=== PATIENT | female | born 1945 | race Caucasian/White ===

== ENCOUNTER 2016-06-16 10:12 | Emergency (ER) | payer BC ==
[~2016-06-16] VITALS: Ht 167.6 cm; Wt 141.8 kg
[~2016-06-16 10:12] MED LIST: DIAZ-165 PO; DICL-201 PO; DIPH25CA65 PO; FLUT0.15; LEVO150T PO; PANT40TA PO; SPIR50TA2 PO; ZNTT/150 PO
[2016-06-16 10:14] VITALS: TEMP 36.8; Ht 167.6 cm; Wt 141.8 kg
--- NOTE | 2016-06-16 10:38 | EMERGENCY ROOM VISIT NOTE ---
History Report prepared by Auraibe: Kelley Alexander Under the Supervision of: Dr. Jose Wolfe M.D. First contact with patient: 10:28 Chief Complaint: FLANK PAIN Stated Complaint: SIDE PAINS History of Present Illness The patient is a 71 year old female who presents to the Emergency Room with complaints of persistent right sided flank pain for the past 2 days. She is accompanied by her . She rates her pain as an 8.5/10. Palpation worsens her discomfort. She denies any urinary symptoms or history of kidney stones. She saw her PCP, Dr. Lambert, earlier this morning and reports he sent her to the ED for further evaluation. She notes she started Meloxicam 2 days ago, for a history of back pain, and states it seems to have caused constipation. She did have a "a few small bowel movements" yesterday, but reports she still feels blocked up. She denies any fevers, chills, chest pain, shortness of breath or recent trauma or injuries. The patient denies any history of hypertension, diabetes or cardiac history. She still has her appendix and gallbladder. She is leaving on a cruise this coming week and is concerned about her symptoms affecting her travel. 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 A total of 10 systems reviewed and were otherwise negative. Past Medical & Surgical Medical Problems: (1) History of back pain Old medical records were reviewed. Nurse's notes were reviewed and I agree with. Social History Smoking Status: Never Smoker Alcohol Use: occasionally Drug Use: none Marital Status: Housing Status: lives with family Occupation Status: retired Current/Historical Medications Scheduled Diazepam (Valium), 5 MG PO DAILY Fluticasone Propionate (Nasal) (Flonase Allergy Relief), 1 SPRAY NA DAILY Levothyroxine Sodium (Synthroid), 1 TAB PO DAILY Methylprednisolone (Medrol Dosepak), 0 PO DAILY Pantoprazole (Protonix), 40 MG PO DAILY Ranitidine (Zantac), 1 TAB PO BID Spironolactone (Aldactone), 50 MG PO BID Scheduled PRN Diphenhydramine Hcl (Benadryl Allergy), 1 CAP PO DAILY-BID PRN for PRN Allergies Coded Allergies: Celecoxib (Unverified Allergy, Unknown, swelling, 06/16/16) Sulfa Antibiotics (Unverified Allergy, Unknown, UNKNOWN, 06/16/16) Uncoded Allergies: seafood (Allergy, Unknown, itching, numbness in lips, 01/30/16) Physical Exam Vital Signs Date Time Temp Pulse Resp B/P Pulse Ox O2 Delivery O2 Flow Rate FiO2 06/16/16 13:36 88 20 164/102 97 Room Air 06/16/16 12:02 88 20 148/83 06/16/16 10:53 92 20 166/89 96 06/16/16 10:14 36.8 93 20 140/86 97 Room Air Physical Exam General: Non-ill appearing older female, well developed, well nourished, in no acute distress, breathing comfortably on room air. Normal speech HEENT: Normal cephalic atraumatic. Pupils are equal round and reactive to light. Extraocular movements are intact. Oropharynx is pink with moist mucous membranes. No swelling of the mouth lips or tongue. Neck: Supple with a midline trachea. No meningeal signs or stiffness, no JVD or bruits. No Stridor. Chest: Clear to auscultation bilaterally. No wheezes or rhonchi. No increased work of breathing. Heart: regular rate and rhythm. Abdomen: Soft, minimal tenderness in right abdomen, nondistended without rebound , guarding or rigidity. Extremities: No cyanosis clubbing or edema. No calf tenderness or assymetry Spine/Back. Non tender to palpation. No CVA tenderness Skin: Good turgor without rashes. Neurologic exam: Cranial nerves two through 12 are intact. Motor and sensation are intact and symmetrical throughout. Medical Decision & Procedures ER Provider Diagnostic Interpretation: This CT scan was reviewed and interpreted by the radiologist and reviewed by myself. ABDOMEN AND PELVIS CT WITHOUT CONTRAST IMPRESSION: No renal stones or hydronephrosis. Negative study abdomen and pelvis Electronically signed by: Vernon Molina M.D. 06/16/2016 11:16 AM Laboratory Results 06/16/16 10:35 Red Blood Count 5.02, Mean Corpuscular Volume 90.0, Mean Corpuscular Hemoglobin 30.7, Mean Corpuscular Hemoglobin Concent 34.1, Mean Platelet Volume 9.5, Neutrophils (%) (Auto) 59.5, Lymphocytes (%) (Auto) 29.2, Monocytes (%) (Auto) 9.5, Eosinophils (%) (Auto) 1.2, Basophils (%) (Auto) 0.3, Neutrophils # (Auto) 4.00, Lymphocytes # (Auto) 1.96, Monocytes # (Auto) 0.64, Eosinophils # (Auto) 0.08, Basophils # (Auto) 0.02 06/16/16 10:35 Test 06/16/16 10:35 White Blood Count 6.72 K/uL (4.8-10.8) Red Blood Count 5.02 M/uL (4.2-5.4) Hemoglobin 15.4 g/dL (12.0-16.0) Hematocrit 45.2 % (37-47) Mean Corpuscular Volume 90.0 fL (80-100) Mean Corpuscular Hemoglobin 30.7 pg (25-34) Mean Corpuscular Hemoglobin Concent 34.1 g/dl (32-36) Platelet Count 286 K/uL (130-400) Mean Platelet Volume 9.5 fL (7.4-10.4) Neutrophils (%) (Auto) 59.5 % Lymphocytes (%) (Auto) 29.2 % Monocytes (%) (Auto) 9.5 % Eosinophils (%) (Auto) 1.2 % Basophils (%) (Auto) 0.3 % Neutrophils # (Auto) 4.00 K/uL (1.4-6.5) Lymphocytes # (Auto) 1.96 K/uL (1.2-3.4) Monocytes # (Auto) 0.64 K/uL (0.11-0.59) Eosinophils # (Auto) 0.08 K/uL (0-0.5) Basophils # (Auto) 0.02 K/uL (0-0.2) RDW Standard Deviation 42.5 fL (36.4-46.3) RDW Coefficient of Variation 13.0 % (11.5-14.5) Immature Granulocyte % (Auto) 0.3 % Immature Granulocyte # (Auto) 0.02 K/uL (0.00-0.02) Urine Color YELLOW Urine Appearance CLEAR (CLEAR) Urine pH 5.0 (4.5-7.5) Urine Specific [place] 1.019 (1.000-1.030) Urine Protein NEG (NEG) Urine Glucose (UA) NEG (NEG) Urine Ketones NEG (NEG) Urine Occult Blood NEG (NEG) Urine Nitrite POS (NEG) Urine Bilirubin NEG (NEG) Urine Urobilinogen NEG (NEG) Urine Leukocyte Esterase NEG (NEG) Urine WBC (Auto) 1-5 /hpf (0-5) Urine RBC (Auto) 0-4 /hpf (0-4) Urine Hyaline Casts (Auto) 1-5 /lpf (0-5) Urine Epithelial Cells (Auto) >30 /lpf (0-5) Urine Bacteria (Auto) 2+ (NEG) Anion Gap 11.0 mmol/L (3-11) Est Creatinine Clear Calc Drug Dose 81.1 ml/min Estimated GFR () 71.2 Estimated GFR (Non- 61.5 BUN/Creatinine Ratio 12.8 (10-20) Calcium Level 9.1 mg/dl (8.5-10.1) Total Bilirubin 0.9 mg/dl (0.2-1) Direct Bilirubin 0.2 mg/dl (0-0.2) Aspartate Amino Transf (AST/SGOT) 21 U/L (15-37) Alanine Aminotransferase (ALT/SGPT) 41 U/L (12-78) Alkaline Phosphatase 103 U/L (45-117) Total Protein 7.9 gm/dl (6.4-8.2) Albumin 4.2 gm/dl (3.4-5.0) Lipase 161 U/L (73-393) Laboratory studies as stated above per my review. Medications Administered Medications (Trade) Dose Ordered Sig/Karlee Route Start Time Stop Time Status Last Admin Dose Admin Sodium Chloride 250 ml @ 999 mls/hr Q16M STAT IV 06/16/16 10:39 06/16/16 10:54 DC 06/16/16 10:46 999 MLS/HR Sodium Chloride (Nss 1000ml) 1,000 ml @ 100 mls/hr Q10H STAT IV 06/16/16 10:39 06/16/16 14:06 DC 06/16/16 10:47 100 MLS/HR Ketorolac Tromethamine (Toradol Inj) 30 mg NOW STAT IV 06/16/16 12:10 06/16/16 12:12 DC 06/16/16 12:18 30 MG Prednisone (PredniSONE TAB) 60 mg NOW STAT PO 06/16/16 13:31 06/16/16 13:32 DC 06/16/16 13:41 60 MG ED Course 1030: Past medical records reviewed. The patient was evaluated in room C4, and a complete history and physical examination were performed. 1039: NSS 1000 ml @ @ 100 mls/hr IV, NSS 250 ml @ 999 mls/hr IV. 1205: I reevaluated the patient. She is still in a lot of pain. 1210: Toradol 30 mg IV. 1320: I reevaluated the patient. She is feeling much better. I discussed her results and discharge instructions and she verbalized complete understanding and agreement. 1331: Prednisone 60 mg PO. Medical Decision Differential Diagnoses: Kidney stone, appendicitis, musculoskeletal pain, AAA, UTI, electrolyte or metabolic abnormality. This patient comes in with back pain for couple days. She does have a history of back pain and is on an NSAID for this. She was placed in room C4. The pain is reproducible. She has nothing to suggest infection or cauda equina syndrome. Multiple blood testing was obtained as well as a CAT scan and urine. She has nothing to suggest a UTI or kidney stone or acute intra-abdominal process. She has no kidney failure or electrolyte or metabolic abnormalities. She was given IV Toradol and steroids. She will continue steroids anti- inflammatories and return if: increasing pain, numbness weakness, worsening of symptoms, change in bowel or bladder function, any new problems or concerns. She is happy with the plan and was discharged home. Impression Primary Impression: Right flank pain Scribe Attestation The scribe's documentation has been prepared under my direction and personally reviewed by me in its entirety. I confirm that the note above accurately reflects all work, treatment, procedures, and medical decision making performed by me. Departure Information Dispostion Home / Self-Care Prescriptions Methylprednisolone (MEDROL DOSEPAK) 4 Mg Bart 0 PO DAILY, #1 PKT Prov: Jose Wolfe M.D. 06/16/16 Referrals Ian Seanz D.O. (PCP) Patient Instructions My [facility] Additional Instructions Rest. Drink plenty of fluids. Be careful getting up and down. Use Medrol Dosepak as directed -steroid Continue to use your Mobic as directed for pain Return if: Increasing pain, fever or chills, worsening of symptoms, any new problems or concerns. Follow-up with your doctor in 1-2 days if not getting better
[2016-06-16] MEDS ORDERED: SODIUM CHLORIDE 0.9% 1000ML 1,000 ML IV STA (10:39)
[2016-06-16] MEDS ORDERED: SODIUM CHLORIDE 0.9% 1000ML 250 ML IV STA (10:39)
[2016-06-16 10:51] LABS: BASO % 0.3 %; BASO ABS # 0.02 K/uL (0-0.2); COMPLETE YES; EOS % 1.2 %; HEMATOCRIT 45.2 % (37-47); IG% 0.3 %; LYMPH % 29.2 %; LYMPH ABS # 1.96 K/uL (1.2-3.4); MEAN CORPUSCULAR HEMOGLOBIN 30.7 pg (25-34); MEAN CORPUSCULAR HGB CONC 34.1 g/dl (32-36); MEAN PLATELET VOLUME 9.5 fL (7.4-10.4); MONO % 9.5 %; NEUT % 59.5 %; PLATELET COUNT 286 K/uL (130-400); RED BLOOD COUNT 5.02 M/uL (4.2-5.4); WHITE BLOOD COUNT 6.72 K/uL (4.8-10.8)
[2016-06-16 11:06] LABS: URINE APPEARANCE CLEAR (CLEAR); URINE BILIRUBIN NEG (NEG); URINE COLOR YELLOW; URINE EPITHELIAL CELL AUTO >30 /lpf (0-5); URINE NITRITE POS (NEG); URINE SPECIFIC GRAVITY 1.019 (1.000-1.030); UROBILINOGEN NEG (NEG)
[2016-06-16 11:07] LABS: MANUAL MICROSCOPIC REQUIRED? NO; REVIEW REQ? NO
--- NOTE | 2016-06-16 11:18 | DIAGNOSTIC IMAGING REPORT ---
ABDOMEN AND PELVIS CT WITHOUT CONTRAST CT DOSE: 1894.93 mGy.cm HISTORY: Right flank pain eval for stone, appy, AAA TECHNIQUE: Multiaxial CT images of the abdomen and pelvis were performed without the use of intravenous and oral contrast according to the standard department stone protocol. COMPARISON STUDY: None. FINDINGS: The lung bases are clear. The unenhanced liver, gallbladder, spleen, pancreas, and adrenal glands are unremarkable. No renal stones or hydronephrosis. No bowel wall thickening or obstruction. The pelvic organs are unremarkable. No suspicious lytic or blastic osseous lesions. Negative appendix. Nonobstructive bowel pattern. IMPRESSION: No renal stones or hydronephrosis. Negative study abdomen and pelvis Electronically signed by: Vernon Molina M.D. 06/16/2016 11:16 AM Dictated Date/Time: 06/16/2016 11:12 AM
[2016-06-16] MEDS ORDERED: KETOROLAC TROMETHAMINE 30 MG/ML VIAL IV STA (12:10)
[2016-06-16 12:45] LABS: BUN/CREATININE RATIO 12.8 (10-20); CALCIUM 9.1 mg/dl (8.5-10.1); CREATININE 0.94 mg/dl (0.60-1.20)
[2016-06-16] MEDS ORDERED: METH4PAK PO (13:33)
[2016-06-16 13:36] VITALS: BP 164/102; PULSE 88; O2SAT 97
== END 2016-06-16 13:49 | disposition home or self-care (01) ==
LOC: C.EDB 10:13 → C.EDC 13:49
DX: R10.9 Unspecified abdominal pain (principal); Z79.899 Other long term (current) drug therapy

== ENCOUNTER → 2016-09-24 | Outpatient (CLI) | payer BC ==
[~2016-09-24] MED LIST changes: -DICL-201 PO
[2016-09-29 02:56] LABS: ANTI-CENTROMERE AB <1.0 NEG AI (<1.0 NEG); ANTI-SS-A <1.0 NEG AI (<1.0 NEG); ANTI-SS-B <1.0 NEG AI (<1.0 NEG); DNA ds CRITHIDIA NEGATIVE (NEGATIVE); Sm Antibody <1.0 NEG AI (<1.0 NEG)
== END | disposition home or self-care (01) ==
LOC: C.LAB1850 12:44
PROVIDERS: ATTEND Internal Medicine Rheumatology
DX: R89.4 Abnormal immunological findings in specimens from other organs, systems and tissues (principal); M06.4 Inflammatory polyarthropathy

== ENCOUNTER → 2017-01-18 | Outpatient (CLI) | payer BC | END | disposition home or self-care (01) | LOC: C.LAB1850 07:26 | PROVIDERS: ATTEND Internal Medicine Endocrinology, Diabetes & Metabolism | DX: E27.0 Other adrenocortical overactivity (principal) ==

== ENCOUNTER → 2017-02-04 | Outpatient (CLI) | payer BC ==
[2017-02-04 12:52] LABS: BASO % 0.5 %; BASO ABS # 0.02 K/uL (0-0.2); COMPLETE YES; EOS % 2.5 %; HEMATOCRIT 44.2 % (37-47); IG% 0.3 %; LYMPH % 40.1 %; LYMPH ABS # 1.59 K/uL (1.2-3.4); MEAN CELL VOLUME 90.6 fL (80-100); MEAN CORPUSCULAR HEMOGLOBIN 30.7 pg (25-34); MEAN CORPUSCULAR HGB CONC 33.9 g/dl (32-36); MEAN PLATELET VOLUME 9.8 fL (7.4-10.4); MONO % 7.3 %; NEUT % 49.3 %; PLATELET COUNT 222 K/uL (130-400); RED BLOOD COUNT 4.88 M/uL (4.2-5.4); WHITE BLOOD COUNT 3.97 K/uL (4.8-10.8)
[2017-02-04 13:30] LABS: ALT/SGPT 28 U/L (12-78); AST/SGOT 13 U/L (15-37); CREATININE 0.73 mg/dl (0.60-1.20)
[2017-02-04 13:32] LABS: ALKALINE PHOSPHATASE 85 U/L (45-117)
== END | disposition home or self-care (01) ==
LOC: C.LAB1850 11:45
PROVIDERS: ATTEND Internal Medicine Rheumatology
DX: M06.4 Inflammatory polyarthropathy (principal); Z79.899 Other long term (current) drug therapy; R19.7 Diarrhea, unspecified

== ENCOUNTER → 2017-09-04 | Outpatient (CLI) | payer BC ==
[~2017-09-04] MED LIST changes: +RANI150T85 PO; -ZNTT/150 PO
[2017-09-04 12:22] LABS: BASO % 0.5 %; BASO ABS # 0.02 K/uL (0-0.2); EOS % 1.6 %; EOS ABS # 0.07 K/uL (0-0.5); HEMATOCRIT 43.9 % (37-47); HEMOGLOBIN 14.3 g/dL (12.0-16.0); IG# 0.01 K/uL (0.00-0.02); LYMPH % 31.1 %; LYMPH ABS # 1.32 K/uL (1.2-3.4); MEAN CELL VOLUME 92.4 fL (80-100); MEAN CORPUSCULAR HEMOGLOBIN 30.1 pg (25-34); MEAN CORPUSCULAR HGB CONC 32.6 g/dl (32-36); MEAN PLATELET VOLUME 9.7 fL (7.4-10.4); MONO % 8.9 %; MONO ABS # 0.38 K/uL (0.11-0.59); NEUT % 57.7 %; NEUT ABS # 2.45 K/uL (1.4-6.5); PLATELET COUNT 247 K/uL (130-400); RED CELL DISTRIBUTION WIDTH CV 13.7 % (11.5-14.5); RED CELL DISTRIBUTION WIDTH SD 46.4 fL (36.4-46.3); WHITE BLOOD COUNT 4.25 K/uL (4.8-10.8)
[2017-09-04 12:35] LABS: ALBUMIN 3.9 gm/dl (3.4-5.0); ALT/SGPT 35 U/L (12-78); AST/SGOT 16 U/L (15-37); CREATININE 0.87 mg/dl (0.60-1.20)
[2017-09-04 12:37] LABS: ALKALINE PHOSPHATASE 109 U/L (45-117); TOTAL PROTEIN 7.9 gm/dl (6.4-8.2)
== END | disposition home or self-care (01) ==
LOC: C.LAB1850 10:29
PROVIDERS: ATTEND Internal Medicine Rheumatology
DX: M06.4 Inflammatory polyarthropathy (principal); Z79.899 Other long term (current) drug therapy

== ENCOUNTER 2024-09-01 11:03 | Inpatient (IN) ==
--- NOTE | 2024-09-01 11:22 | Emergency Department Note ---
Impression & Plan Nausea vomiting and diarrhea, Hypokalemia, Generalized weakness, Hypomagnesemia ED Provider Note NAME: CHEMA VIEIRA AGE: 79 SEX: F : 1945 ARRIVES VIA: Ambulance INFORMANT: Patient, ED PROVIDER(S): Davide Simms MD CHIEF COMPLAINT: "I just do not feel good." MEDICAL DECISION MAKING: Patient presents due to concern for feeling generally unwell. Patient states she has had about 2 weeks of symptoms with some associated body aches. The patient has had vomiting and diarrhea. IV was established and blood work is obtained. Patient's blood work shows a white count of 11.7 with a normal hemoglobin. Thrombocytosis 516. Kidney function is unremarkable. Hypokalemia and hypomagnesemia noted. The patient was ordered replacement. Patient started additional IV fluids. BioFire negative. Chest x-ray without obvious pneumonia. I did have the patient attempted to be walked the patient was unable to do so. Given the patient's inability to ambulate on her own do believe the patient would benefit from inpatient treatment this time. I did speak with Dr. Michelle and the patient was admitted to the medicine service. Discussion w/ other healthcare providers: Dr. Reyes inpatient medicine service Prior /Outside records reviewed: None Differential diagnosis: Infection, dehydration, metabolic abnormality, hypo/hyperglycemia, electrolyte imbalance, anemia, UTI, pneumonia, thyroid dysfunction among others were considered. Diagnostics, as interpreted by me: ECG: Normal sinus rhythm, rate 99, prolonged QTc, left axis deviation no obvious ST elevations. Possible ST depressions in the lateral leads. Cardiac monitoring: An order was placed for continuous cardiac monitoring. The monitor shows a rate of 95 with sinus rhythm. Patient was placed on pulse oximetry Medical decision rules: None Imaging studies: I informally interpreted the patient's chest x-ray without obvious pneumonia or pneumothorax with formal report to follow. HPI: Patient presents due to concern for feeling generally unwell. The patient states that about 2 weeks ago the patient did have some associated neck stiffness and bodyaches. The patient was seen by her PCP Dr. Farah had some blood work completed along with a chest x-ray which she reports was fairly unremarkable was started on Augmentin treatment. The patient states that she has been had poor appetite the last 7 to 10 days poor p.o. intake not eating or drinking very much and has been having dry heaves with occasional intermittent vomiting. Patient denies any chest pains or shortness of breath no abdominal pain. Patient reports that she has a diarrhea. No known sick contacts or any recent travel. Patient has not taken anything in particular other than the Augmentin at home for her symptoms. PAST MEDICAL HISTORY: See Below PAST SURGICAL HISTORY: See Below SOCIAL HISTORY: See Below HOME MEDICATIONS: See Below ALLERGIES: See Below VITALS: See Below PHYSICAL EXAMINATION: GENERAL: NAD, non-toxic. Wearing glasses. EYE EXAM: Normal conjunctiva. PERRL, no anisocoria and EOM's grossly intact w/o pain. OROPHARYNX: Dry mucus membranes, grossly normal dentition. NECK: Trachea midline, no stridor. Supple, no nuchal rigidity, no adenopathy, non-tender. No signs of meningismus. FROM of the neck with good chin to chest and neck extension. LUNGS: Clear to auscultation. Normal chest wall mechanics. HEART: NSR, no MRG. ABDOMEN: Abdomen soft, non-tender, no masses, no rebound or guarding. BACK: No CVA TTP. SKIN: No rashes and no bruising. UPPER EXTREMITIES: Upper extremities are grossly normal. LOWER EXTREMITIES: Grossly normal, no edema. Stool noted on the bilateral lower extremities. NEURO EXAM: A&O x3, cranial nerves II-XII grossly intact, normal speech, moves all 4 extremities. Past Med/Surg History Problem List (Updated 09/01/24 @ 18:06 by Davide Simms MD) Hypomagnesemia (Acute) Generalized weakness (Acute) Hypokalemia (Acute) Nausea vomiting and diarrhea (Acute) Hypokalemia Nausea vomiting and diarrhea Morbid obesity with BMI of 40.0-44.9, adult Scoliosis of lumbar region due to degenerative disease of spine in adult B12 deficiency Restless leg syndrome Lumbar spinal stenosis Morbid obesity with BMI of 50.0-59.9, adult Inflammatory arthritis Hypertension (Chronic) Depression with anxiety (Chronic) Idiopathic polyneuropathy (Chronic) Lumbar radiculopathy (Chronic) Lymphedema of both lower extremities Anxiety disorder GERD (gastroesophageal reflux disease) Hypothyroidism Medical History Scoliosis of lumbar region due to degenerative disease of spine in adult RLS (restless legs syndrome) Lumbar spinal stenosis Lumbar radiculopathy Inflammatory arthritis Idiopathic polyneuropathy Hypothyroidism Hypertension hx Depression with anxiety Anxiety disorder GERD (gastroesophageal reflux disease) Surgical History S/P epidural steroid injection 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 History of section History of tonsillectomy and adenoidectomy Social History Smoking Status: Never smoker Second Hand Exposure: No; Do You Dip or Chew Tobacco: No; Hx Alcohol Use: Yes Hx Substance Use: No Preferred Language: Amharic Communication Ability: Effective Combiner Required: No Beliefs That Will Affect Care: None marital status: Current Living Situation: Spouse current occupational status: retired current occupation: 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 Feels Safe at Home: Yes Assistive Devices: Walker Allergies Allergies Allergy/AdvReac Type Severity Reaction Status Date / Time shellfish derived Allergy Intermediate itchy Verified 09/01/24 14:18 throat Sulfa (Sulfonamide Allergy Intermediate swelling, Verified 09/01/24 14:18 Antibiotics) lips get itchy milk AdvReac Intermediate Diarrhea Verified 09/01/24 14:18 Home Meds Home Medications Medication Instructions Recorded Confirmed levothyroxine 150 mcg tablet 150 mcg PO QAM #30 tabs 01/13/19 09/01/24 diclofenac sodium 1 % topical gel 2 g topical QID PRN Pain 12/10/20 09/01/24 furosemide 20 mg tablet 20 mg PO QAM 09/19/21 09/01/24 baclofen 20 mg tablet 20 mg PO DAILY PRN Pain 02/26/24 09/01/24 calcium carbonate (Tums) 300 mg PO QID PRN GERD 02/26/24 09/01/24 potassium chloride 10 mEq 10 meq PO QAM 02/26/24 09/01/24 capsule,extended release acetaminophen 500 mg tablet 500 mg PO Q6H PRN Pain 09/01/24 09/01/24 diazepam 5 mg tablet (Valium) 5 mg PO HS PRN Insomnia 09/01/24 09/01/24 omeprazole 40 mg capsule,delayed 40 mg PO QAM 09/01/24 09/01/24 release Previous Rx's Medication Instructions Recorded gabapentin 300 mg capsule 300 mg PO HS #30 caps 04/07/24 Results & Data (ED) Vital Signs Vital Signs - 24 hr 09/01/24 11:09 09/01/24 11:10 09/01/24 11:10 Temperature Temperature Source Pulse Rate 102 H Pulse Rate from SpO2 Sensor 105 H Respiratory Rate 17 Respiratory Effort / Characteristics Respiratory Depth Respiratory Pattern Blood Pressure 139/104 H 139/104 H Blood Pressure Mean 116 116 Blood Pressure Position Pulse Oximetry 96 Oxygen Delivery Method Room Air Sepsis Recent Fever Within 48 Hours Sepsis New/Unexplained Change in Mental Status Sepsis Action Taken by Nursing 09/01/24 11:24 09/01/24 11:32 09/01/24 11:39 Temperature 36.6 C Temperature Source Oral Pulse Rate 100 H 97 H 96 H Pulse Rate from SpO2 Sensor 96 H Respiratory Rate 20 32 H Respiratory Effort / Characteristics Non-Labored Respiratory Depth Normal Respiratory Pattern Regular Blood Pressure 139/104 H Blood Pressure Mean 115 Blood Pressure Position Lying Pulse Oximetry 95 96 Oxygen Delivery Method Room Air Room Air Sepsis Recent Fever Within 48 Hours No Sepsis New/Unexplained Change in Mental Status No Sepsis Action Taken by Nursing No Action Required 09/01/24 11:57 09/01/24 12:00 09/01/24 12:01 Temperature Temperature Source Pulse Rate 95 H 95 H Pulse Rate from SpO2 Sensor 94 H Respiratory Rate 16 12 Respiratory Effort / Characteristics Respiratory Depth Respiratory Pattern Blood Pressure 143/98 H Blood Pressure Mean 104 Blood Pressure Position Pulse Oximetry 96 96 Oxygen Delivery Method Room Air Room Air Sepsis Recent Fever Within 48 Hours Sepsis New/Unexplained Change in Mental Status Sepsis Action Taken by Nursing 09/01/24 12:30 09/01/24 12:33 09/01/24 12:33 Temperature Temperature Source Pulse Rate 89 Pulse Rate from SpO2 Sensor 89 Respiratory Rate 14 Respiratory Effort / Characteristics Respiratory Depth Respiratory Pattern Blood Pressure 134/91 134/91 Blood Pressure Mean 115 115 Blood Pressure Position Pulse Oximetry 98 Oxygen Delivery Method Room Air Sepsis Recent Fever Within 48 Hours Sepsis New/Unexplained Change in Mental Status Sepsis Action Taken by Nursing 09/01/24 12:57 09/01/24 13:02 09/01/24 13:09 Temperature Temperature Source Pulse Rate 88 105 H Pulse Rate from SpO2 Sensor 88 87 Respiratory Rate 18 20 Respiratory Effort / Characteristics Respiratory Depth Respiratory Pattern Blood Pressure 146/82 H Blood Pressure Mean 114 Blood Pressure Position Pulse Oximetry 94 96 Oxygen Delivery Method Room Air Room Air Sepsis Recent Fever Within 48 Hours Sepsis New/Unexplained Change in Mental Status Sepsis Action Taken by Nursing 09/01/24 13:39 09/01/24 14:00 09/01/24 14:00 Temperature Temperature Source Pulse Rate 92 H Pulse Rate from SpO2 Sensor 92 H 92 H Respiratory Rate 22 Respiratory Effort / Characteristics Respiratory Depth Respiratory Pattern Blood Pressure 122/75 Blood Pressure Mean 84 Blood Pressure Position Pulse Oximetry 96 95 Oxygen Delivery Method Room Air Room Air Sepsis Recent Fever Within 48 Hours Sepsis New/Unexplained Change in Mental Status Sepsis Action Taken by Nursing 09/01/24 14:00 09/01/24 14:12 09/01/24 14:30 Temperature Temperature Source Pulse Rate 92 H Pulse Rate from SpO2 Sensor 92 H Respiratory Rate 18 Respiratory Effort / Characteristics Respiratory Depth Respiratory Pattern Blood Pressure 122/75 117/70 Blood Pressure Mean 84 95 Blood Pressure Position Pulse Oximetry 93 Oxygen Delivery Method Room Air Sepsis Recent Fever Within 48 Hours Sepsis New/Unexplained Change in Mental Status Sepsis Action Taken by Nursing 09/01/24 14:30 09/01/24 14:36 09/01/24 15:06 Temperature Temperature Source Pulse Rate 90 95 H Pulse Rate from SpO2 Sensor 88 95 H Respiratory Rate 17 30 H Respiratory Effort / Characteristics Respiratory Depth Respiratory Pattern Blood Pressure 117/70 Blood Pressure Mean 95 Blood Pressure Position Pulse Oximetry 94 95 Oxygen Delivery Method Room Air Sepsis Recent Fever Within 48 Hours Sepsis New/Unexplained Change in Mental Status Sepsis Action Taken by Nursing 09/01/24 15:12 09/01/24 15:24 09/01/24 15:30 Temperature Temperature Source Pulse Rate 93 H 92 H 91 H Pulse Rate from SpO2 Sensor 93 H 93 H Respiratory Rate 24 15 Respiratory Effort / Characteristics Respiratory Depth Respiratory Pattern Blood Pressure Blood Pressure Mean Blood Pressure Position Pulse Oximetry 95 94 Oxygen Delivery Method Sepsis Recent Fever Within 48 Hours Sepsis New/Unexplained Change in Mental Status Sepsis Action Taken by Nursing 09/01/24 15:30 09/01/24 15:31 09/01/24 15:42 Temperature Temperature Source Pulse Rate 92 H 91 H Pulse Rate from SpO2 Sensor 94 H 91 H Respiratory Rate 23 20 Respiratory Effort / Characteristics Respiratory Depth Respiratory Pattern Blood Pressure 120/79 Blood Pressure Mean 93 Blood Pressure Position Pulse Oximetry 96 94 Oxygen Delivery Method Sepsis Recent Fever Within 48 Hours Sepsis New/Unexplained Change in Mental Status Sepsis Action Taken by Nursing 09/01/24 15:48 09/01/24 16:01 09/01/24 16:03 Temperature Temperature Source Pulse Rate 90 91 H Pulse Rate from SpO2 Sensor 90 Respiratory Rate 23 20 Respiratory Effort / Characteristics Respiratory Depth Respiratory Pattern Blood Pressure 116/74 Blood Pressure Mean 95 Blood Pressure Position Pulse Oximetry 95 Oxygen Delivery Method Sepsis Recent Fever Within 48 Hours Sepsis New/Unexplained Change in Mental Status Sepsis Action Taken by Nursing 09/01/24 16:21 Temperature Temperature Source Pulse Rate 91 H Pulse Rate from SpO2 Sensor 92 H Respiratory Rate 16 Respiratory Effort / Characteristics Respiratory Depth Respiratory Pattern Blood Pressure Blood Pressure Mean Blood Pressure Position Pulse Oximetry 90 Oxygen Delivery Method Sepsis Recent Fever Within 48 Hours Sepsis New/Unexplained Change in Mental Status Sepsis Action Taken by [facility] Medications Current Medication List: was personally reviewed by me Laboratory Data Attestation: I reviewed the patient's lab results. 09/01/24 11:15 09/01/24 11:15 Lab Results 09/01/24 09/01/24 Range/Units 11:15 11:57 WBC 11.73 H (4.8-10.8) K/ul RBC 4.69 (4.20-5.40) M/uL Hgb 13.5 (12.0-16.0) g/dl Hct 41.0 (37.0-47.0) % MCV 87.4 (80.0-100.0) fL MCH 28.8 (25.0-34.0) pg MCHC 32.9 (32.0-36.0) g/dL RDW Std Deviation 40.4 (36.4-46.3) fL RDW Coeff of Mabel 12.7 (11.5-14.5) % Plt Count 516 H (130-400) K/uL MPV 9.2 L (9.4-12.4) fL Immature Gran % (Auto) 0.4 % Neut % (Auto) 80.0 % Lymph % (Auto) 13.5 % [place] % (Auto) 4.8 % Eos % (Auto) 0.9 % Baso % (Auto) 0.4 % Neut # (Auto) 9.38 H (1.40-6.50) K/uL Lymph # (Auto) 1.58 (1.20-3.40) K/uL [place] # (Auto) 0.56 (0.11-0.59) K/uL Eos # (Auto) 0.11 (0.00-0.50) K/uL Baso # (Auto) 0.05 (0.00-0.20) K/uL Immature Gran # (Auto) 0.05 (0.01-0.20) K/uL ESR 73 H (0-30) mm/hr PT 11.4 (9.0-12.0) Seconds INR 1.1 (0.9-1.1) Sodium 138 (136-145) mmol/L Potassium 2.8 L (3.5-5.1) mmol/L Chloride 99 (98-107) mmol/L Carbon Dioxide 29 (21-32) mmol/L Anion Gap 10 (3-11) BUN 8 (6-23) mg/dl Creatinine 0.84 (0.6-1.2) mg/dl Est Cr Clr Drug Dosing 72.6 ml/min eGFR 71.08 BUN/Creatinine Ratio 9.5 L (10-20) Glucose 198 H (70-99(Fasting)) mg/dl Calcium 9.5 (8.6-10.3) mg/dl Magnesium 1.5 L (1.7-2.4) mg/dl Total Bilirubin 0.5 (0.2-1.0) mg/dl AST 9 L (13-39) U/L ALT 7 (7-52) U/L Alkaline Phosphatase 112 H (34-104) U/L Troponin I High Sens 5.1 (0-14) pg/ml Total Protein 7.3 (6.0-8.3) gm/dl Albumin 3.5 (3.4-5.0) gm/dl Globulin 3.8 (2.5-4.0) gm/dl Albumin/Globulin Ratio 0.9 (0.9-2) TSH 4.252 (0.300-4.500) uIu/ml Adenovirus (PCR) Not Detected (NotDetected) B. pertussis DNA (PCR) Not Detected (NotDetected) B.parapertussis DNA PCR Not Detected (NotDetected) C. pneumoniae DNA (PCR) Not Detected (NotDetected) Coronavirus OC43 (PCR) Not Detected (NotDetected) Coronavirus HKU1 (PCR) Not Detected (NotDetected) Coronavirus 229E (PCR) Not Detected (NotDetected) SARS-CoV-2 (PCR) Not Detected (NotDetected) Coronavirus NL63 (PCR) Not Detected (NotDetected) Human Metapneumovir PCR Not Detected (NotDetected) Influenza Type A (PCR) Not Detected (NotDetected) Influenza Type B (PCR) Not Detected (NotDetected) M. pneumoniae (PCR) Not Detected (NotDetected) Parainfluenza 1 (PCR) Not Detected (NotDetected) Parainfluenza 2 (PCR) Not Detected (NotDetected) Parainfluenza 3 (PCR) Not Detected (NotDetected) Parainfluenza 4 (PCR) Not Detected (NotDetected) RSV (PCR) Not Detected (NotDetected) Entero/Rhino (PCR) Not Detected (NotDetected) Administered Medications Discontinued Medications Sodium Chloride (Nss) 1,000 mls @ 999 mls/hr IV .Q1H1M ONE Stop: 09/01/24 12:48 Last Infusion: 09/01/24 13:57 Dose: Infused Documented By: Admin: 09/01/24 11:58 Dose: 999 mls/hr Documented By: RAQUEL Sodium Chloride (Nss) 500 mls @ 999 mls/hr IV .Q31M ONE Stop: 09/01/24 12:18 Last Infusion: 09/01/24 12:30 Dose: Infused Documented By: Admin: 09/01/24 11:59 Dose: 999 mls/hr Documented By: RAQUEL Magnesium Sulfate/Dextrose (Magnesium Sulfate / D5w) 1 gm in 100 mls @ 100 mls/hr IV NOW STA Stop: 09/01/24 14:15 Last Infusion: 09/01/24 14:56 Dose: Infused Documented By: Admin: 09/01/24 13:50 Dose: 100 mls/hr Documented By: PRIYANK Potassium Chloride (K Kilo / Wtr) 10 meq in 100 mls @ 100 mls/hr IV ONE ONE Stop: 09/01/24 14:14 Last Infusion: 09/01/24 14:56 Dose: Infused Documented By: Admin: 09/01/24 13:50 Dose: 100 mls/hr Documented By: PRIYANK Ondansetron HCl (Ondansetron Inj 2 Mg/Ml 2 Ml Vial) 4 mg IV NOW STA Stop: 09/01/24 11:49 Last Admin: 04/22/25 11:59 Dose: 4 mg Documented By: RAQUEL Potassium Chloride (Potassium Chloride Crtab 20 Meq Tabcr) 40 meq PO NOW STA Stop: 09/01/24 15:59 Last Admin: 09/01/24 16:06 Dose: 40 meq Documented By: CEF Imaging Data Radiologist's Impression: Chest X-Ray 09/01/24 11:48 XR chest 1V portable CLINICAL HISTORY: weakness COMPARISON STUDY: 12/04/2019 FINDINGS: Heart size and pulmonary vasculature are normal. No effusion, consolidation, or pneumothorax. IMPRESSION: No acute findings. ACT 112: Negative or not required by law. Electronically signed by: Jacob Hillman M.D. 09/01/2024 12:14 PM Discharge Plan Visit Data Chief Complaint: Weakness Stated Complaint: Weakness ED Provider: Davide Simms Discharge Problem: Nausea vomiting and diarrhea, Hypokalemia, Generalized weakness, Hypomagnesemia Forms Stand Alone Forms: [employer] Prescriptions Prescriptions: No Action gabapentin 300 mg capsule 300 mg PO HS Qty: 30 5RF levothyroxine 150 mcg tablet 150 mcg PO QAM Qty: 30 furosemide 20 mg tablet 20 mg PO QAM diclofenac sodium 1 % gel 2 g TOPICAL QID PRN (Reason: Pain) Rx Instructions: use on bilateral knees omeprazole 40 mg capsule,delayed release(DR/EC) 40 mg PO QAM diazepam [Valium] 5 mg tablet 5 mg PO HS PRN (Reason: Insomnia) acetaminophen [Tylenol Ex Str Rapid Release] 500 mg Tablet 500 mg PO Q6H PRN (Reason: Pain) potassium chloride 10 mEq capsule, extended release 10 meq PO QAM Tums 300 mg (750 mg) Tablet,Chewable 300 mg PO QID PRN (Reason: GERD) baclofen 20 mg tablet 20 mg PO DAILY PRN (Reason: Pain) Referrals Referrals: Ian Saenz DO [Primary Care Provider] -
[2024-09-01] MEDS: SODIUM CHLORIDE 0.9% 1,000 ML IV ONE (11:58)
[2024-09-01] MEDS: SODIUM CHLORIDE 0.9% 500 ML IV ONE (11:59)
[2024-09-01] MEDS: ONDANSETRON INJ 2 MG/ML 2 ML VIAL IV STA (11:59)
[2024-09-01 12:12] LABS: Basophils # (auto) 0.05 K/uL (0.00-0.20); Basophils % (auto) 0.4 %; Eosinophils # (auto) 0.11 K/uL (0.00-0.50); Eosinophils % (auto) 0.9 %; Hemoglobin 13.5 g/dl (12.0-16.0); Immature Granulocytes # (auto) 0.05 K/uL (0.01-0.20); Immature Granulocytes % (auto) 0.4 %; Lymphocytes # (auto) 1.58 K/uL (1.20-3.40); Lymphocytes % (auto) 13.5 %; Mean Corpuscular Hemoglobin 28.8 pg (25.0-34.0); Mean Corpuscular Hgb Conc 32.9 g/dL (32.0-36.0); Mean Corpuscular Volume 87.4 fL (80.0-100.0); Mean Platelet Volume 9.2 fL (9.4-12.4); Monocytes # (auto) 0.56 K/uL (0.11-0.59); Monocytes % (auto) 4.8 %; Neutrophils # (auto) 9.38 K/uL (1.40-6.50); Platelet Count 516 K/uL (130-400); RDW Coefficient of Variation 12.7 % (11.5-14.5); RDW Standard Deviation 40.4 fL (36.4-46.3); Red Blood Count 4.69 M/uL (4.20-5.40); White Blood Count 11.73 K/ul (4.8-10.8)
--- NOTE | 2024-09-01 12:15 | XRay Report ---
XR chest 1V portable CLINICAL HISTORY: weakness COMPARISON STUDY: 12/04/2019 FINDINGS: Heart size and pulmonary vasculature are normal. No effusion, consolidation, or pneumothora x. IMPRESSION: No acute findings. ACT 112: Negative or not required by law. Electronically signed by: Jacob Hillman M.D. 09/01/2024 12:14 PM
[2024-09-01 12:28] LABS: Albumin Level 3.5 gm/dl (3.4-5.0); Bilirubin,Total 0.5 mg/dl (0.2-1.0); Calcium 9.5 mg/dl (8.6-10.3); Magnesium 1.5 mg/dl (1.7-2.4); Potassium 2.8 mmol/L (3.5-5.1)
[2024-09-01 12:34] LABS: Albumin Globulin Ratio 0.9 (0.9-2); BUN Creatinine Ratio 9.5 (10-20); Creatinine Clr Calc Pharmacy 72.6 ml/min; Globulin 3.8 gm/dl (2.5-4.0); INR 1.1 (0.9-1.1); Prothrombin Time 11.4 Seconds (9.0-12.0); Total Protein 7.3 gm/dl (6.0-8.3)
[2024-09-01 12:38] LABS: Troponin I High Sensitivity 5.1 pg/ml (0-14)
[2024-09-01 12:47] LABS: Thyroid Stimulating Hormone 4.252 uIu/ml (0.300-4.500)
[2024-09-01 13:07] LABS: Adenovirus PCR Not Detected (NotDetected); Bordetella parapertussis PCR Not Detected (NotDetected); Bordetella pertussis PCR Not Detected (NotDetected); Chlamydia pneumoniae PCR Not Detected (NotDetected); Coronavirus 229E PCR Not Detected (NotDetected); Coronavirus CoV-2 (COVID19)PCR Not Detected (NotDetected); Coronavirus HKU1 PCR Not Detected (NotDetected); Coronavirus NL63 PCR Not Detected (NotDetected); Coronavirus OC43PCR Not Detected (NotDetected); Human Metapneumovirus PCR Not Detected (NotDetected); Influenza A PCR Not Detected (NotDetected); Influenza B PCR Not Detected (NotDetected); Mycoplasma pneumoniae PCR Not Detected (NotDetected); Parainfluenza Virus 1 PCR Not Detected (NotDetected); Parainfluenza Virus 2 PCR Not Detected (NotDetected); Parainfluenza Virus 3 PCR Not Detected (NotDetected); Parainfluenza Virus 4 PCR Not Detected (NotDetected); Respiratory Syncytial VirusPCR Not Detected (NotDetected); Rhinovirus/Enterovirus PCR Not Detected (NotDetected)
[2024-09-01] MEDS: POTASSIUM CHLORIDE / WTR 10 MEQ/100 ML PLCT IV ONE (13:50)
[2024-09-01] MEDS: MAGNESIUM SULFATE / D5W 1 GM/100 ML BAG IV STA (13:50)
--- NOTE | 2024-09-01 15:13 | Electrocardiogram Report ---
Test Reason : Blood Pressure : */* mmHG Vent. Rate : 99 BPM Atrial Rate : 99 BPM P-R Int : 152 ms QRS Dur : 106 ms QT Int : 542 ms P-R-T Axes : 49 -29 55 degrees QTcB Int : 695 ms Normal sinus rhythm Left ventricular hypertrophy with repolarization abnormality Abnormal ECG When compared with ECG of 04-Dec-2019 12:02, Incomplete right bundle branch block is no longer Present Confirmed by Jose Meyers ([id number]) on 09/01/2024 3:12:49 PM Referred By: REFERRED SELF Confirmed By: Jose Meyers
--- NOTE | 2024-09-01 15:48 | History & Physical Report ---
Date of Service September 01, 2024 Assessment & Plan (1) Morbid obesity with BMI of 40.0-44.9, adult: (2) Lumbar spinal stenosis: (3) Nausea vomiting and diarrhea: (4) Hypokalemia: Plan 79-year-old woman with a history of lymphocytic colitis and esophagitis who was admitted with 2 weeks of flulike symptoms, ongoing malaise/myalgias generalized weakness nausea vomiting and diarrhea. Recently treated with a course of Augmentin or amoxicillin x 10 days for sinusitis symptoms which seem to have resolved. would be unlikely for a infective gastroenteritis or flulike viral syndrome to persist this long. it is possible she has a touchy GI system and is simply having trouble with her oral intake during recovery. She does have increased risk of C. difficile diarrhea with the recent course of antibiotics and mild leukocytosis, Though no abdominal pain or fever. she is at risk for gastroparesis she does have lower extremity polyneuropathy is possible that pre- existing GI symptoms of lymphocytic colitis and or lactose intolerance are in flare. with respect to the weakness it is more LE than UE, proximal more than distal. LE strength is asymmetric and weaker on the R however this may be related to her underlying neuropathy, spinal stenosis, radiculopathy and I do not think it is acute. At baseline has to help her up to get to her walker. 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 Hypokalemia and dehydration are a factor and she was mostly in bed x 2 weeks thus deconditioned. Malaise - thyroid is well replaced, B12 checked recently also well replaced, Will put on empiric p.o. thiamine but consider course of IV, ESR was very elevated at 70 early in August and PMR is a possibility she lacks any clear symptoms of temporal arteritis I added on a repeat ESR. # Nausea vomiting and diarrhea Symptomatic treatment with IV Zofran, scheduled p.o. Reglan, Imodium/Pepto as needed, lactose-free diet Ordered stool BioFire and C. difficile, my suspicion is not high enough for empiric C. difficile treatment at this time If not improving may need gastroenterology consult. No she did have a distal esophageal stricture dilated in March # malaise, myalgias, weakness Replace hypokalemia, ordered another 40 mEq p.o. now in ED had already given 20. Replace hypomagnesemia with IV. Hold oral magnesium supplement which she takes at home because it can cause diarrhea. A.m. BMP, monitor telemetry until potassium is greater than 3.0 Added on ESR to labs, consider PMR also her chart makes mention of an inflammatory arthritis but I cannot find any more records of this. I see an old positive KATARINA 1: 360 previous labs B12 on adequate oral replacement, hypothyroidism on adequate oral replacement, empiric B1 oral treatment Lyme testing is pending. She is very sedentary has not been out of doors so unlikely tickborne decrease gabapentin to 100 mg at bedtime, hold baclofen PT/OT seems likely she may require rehab stay # Right sided neck pain Neck is supple with no meningismus range of motion is restrictive turning to the left however there is no pain or tenderness chin to chest and extension without any pain or tenderness. I think this is muscular spasm pain is right trapezius which is very tight appears to be in spasm suspect cognitive impairmentshe is quite a vague historian and is forgetful of details. Her denies any recent altered mental status morbid obesity with BMI of 42 chronic lymphedema currently well-controlled History of HTN, not on meds, currently normotensive DVT prophylaxisenoxaparin 40 subcu twice daily Prefers full code dispositionPT/OT consult ordered, anticipate she may need SNF rehab History of Present Illness Chief Complaint: weakness, nausea vomiting and diarrhea Primary Care Provider: DO Uyen Tineo is a 79-year-old woman with history of lymphocytic colitis and esophagitis as well as hypothyroidism and morbid obesity who developed a nonspecific flulike illness 2 weeks ago. Her had similar symptoms but it only lasted 24-48 hours for him. She is a vague historian and her automatically fills in a lot of details, which seems to be their baseline. She mainly complains of muscle aches/myalgias weakness and fatigue. Early on she had right neck pain as she was given Valium and Tylenol for that. Later on she had sinus congestion right facial and ear pain and she was treated by the clinic with 10 days of Augmentin. The sinus pressure resolved but other symptoms did not improve. She also has had nausea vomiting and diarrhea throughout this time. It sounds like she is able to eat a meal but 1 hour after that she will vomit, meals also provoke diarrhea which she cannot really quantify. No hematemesis or bloody stools, no melena. She is known to be lactose intolerant but the GI symptoms persist despite avoiding dairy products recently. March 2024 she was evaluated by gastroenterology Dr. Sanchez who performed EGD and colonoscopy. 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 She was treated with a tapering dose of something for 6 to 8 weeks after that I presume it may have been a steroid for lymphocytic colitis. Intestinal symptoms did improve after that. She denies abdominal pain and denies history of C. difficile. She continues to have some neck pain right greater than the left this seems to be related to the trapezius muscle on the right and is not midline/spinal. She has been having intermittent headache which is bilateral and posterior. No symptoms of jaw claudication and no visual disturbances. No cough or shortness of breath, no chest pain. Allergies Allergy/AdvReac Type Severity Reaction Status Date / Time shellfish derived Allergy Intermediate itchy Verified 09/01/24 14:18 throat Sulfa (Sulfonamide Allergy Intermediate swelling, Verified 09/01/24 14:18 Antibiotics) lips get itchy milk AdvReac Intermediate Diarrhea Verified 09/01/24 14:18 Home Medications Medication Instructions Recorded Confirmed Type levothyroxine 150 mcg tablet 150 mcg PO QAM #30 tabs 01/13/19 09/01/24 History diclofenac sodium 1 % topical gel 2 g topical QID PRN Pain 12/10/20 09/01/24 History furosemide 20 mg tablet 20 mg PO QAM 09/19/21 09/01/24 History baclofen 20 mg tablet 20 mg PO DAILY PRN Pain 02/26/24 09/01/24 History calcium carbonate (Tums) 300 mg PO QID PRN GERD 02/26/24 09/01/24 History potassium chloride 10 mEq 10 meq PO QAM 02/26/24 09/01/24 History capsule,extended release gabapentin 300 mg capsule 300 mg PO HS #30 caps 04/07/24 09/01/24 Rx acetaminophen 500 mg tablet 500 mg PO Q6H PRN Pain 09/01/24 09/01/24 History diazepam 5 mg tablet (Valium) 5 mg PO HS PRN Insomnia 09/01/24 09/01/24 History omeprazole 40 mg capsule,delayed 40 mg PO QAM 09/01/24 09/01/24 History release Past Med/Surg History Problem List (Updated 09/01/24 @ 15:42 by Griselda Reyes MD) Hypokalemia Nausea vomiting and diarrhea Morbid obesity with BMI of 40.0-44.9, adult Scoliosis of lumbar region due to degenerative disease of spine in adult B12 deficiency Restless leg syndrome Lumbar spinal stenosis Morbid obesity with BMI of 50.0-59.9, adult Inflammatory arthritis Hypertension (Chronic) Depression with anxiety (Chronic) Idiopathic polyneuropathy (Chronic) Lumbar radiculopathy (Chronic) Lymphedema of both lower extremities Anxiety disorder GERD (gastroesophageal reflux disease) Hypothyroidism Medical History Scoliosis of lumbar region due to degenerative disease of spine in adult RLS (restless legs syndrome) Lumbar spinal stenosis Lumbar radiculopathy Inflammatory arthritis Idiopathic polyneuropathy Hypothyroidism Hypertension hx Depression with anxiety Anxiety disorder GERD (gastroesophageal reflux disease) Surgical History S/P epidural steroid injection 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 History of section History of tonsillectomy and adenoidectomy Social History Smoking Status: Never smoker Second Hand Exposure: No; Do You Dip or Chew Tobacco: No; Hx Alcohol Use: Yes Hx Substance Use: No Preferred Language: Urdu Communication Ability: Effective Dry End Operator Required: No Beliefs That Will Affect Care: None marital status: Current Living Situation: Spouse current occupational status: retired current occupation: 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 Clear to auscultation bilaterally. No RRW Heart: Regular rate and rhythm, no murmurs. No JVD Abdomen: Soft, nontender, nondistended. Bowel sounds present. Extremities: Warm, dry, well-perfused. No extremity edema. no prominent pitting edema or lymphedema at this time skin is loose. Skin: A lot of seborrheic keratoses on her back Neuro: Alert and oriented x 4 though is vague and forgetful on some details of her history, face symmetric, moves 4 extremities well. strength testing: Upper extremities 4+/5, lower extremities are definitely weak at the hip flexors she can barely get her heels 1 cm off the bed, knee flexors are also weak bilaterally, plantarflexion is weaker on the right than the left, dorsi flexion is also weaker on the right than the left, she has symmetrical loss of sensation both feet and lower legs Psych: Normal affect and behavior Results & Data Results & Data Vital Signs (Past 12 Hours) Vital Signs Temp Pulse Resp BP Pulse Ox O2 Del Method 09/01/24 14:36 90 17 94 Room Air 09/01/24 14:30 117/70 09/01/24 14:30 117/70 09/01/24 14:12 92 H 18 93 Room Air 09/01/24 14:00 122/75 09/01/24 14:00 122/75 09/01/24 14:00 92 H 22 95 Room Air 09/01/24 13:39 96 Room Air 09/01/24 13:09 105 H 20 96 Room Air 09/01/24 13:02 146/82 H 09/01/24 12:57 88 18 94 Room Air 09/01/24 12:33 134/91 09/01/24 12:33 134/91 09/01/24 12:30 89 14 98 Room Air 09/01/24 12:01 143/98 H 09/01/24 12:00 95 H 12 96 Room Air 09/01/24 11:57 95 H 16 96 Room Air 09/01/24 11:39 96 H 32 H 96 Room Air 09/01/24 11:32 97 H 09/01/24 11:24 36.6 C 100 H 20 139/104 H 95 Room Air 09/01/24 11:10 139/104 H 09/01/24 11:10 139/104 H 09/01/24 11:09 102 H 17 96 Room Air Laboratory Results notable for significant hypokalemia potassium 2.8, mild hypomagnesemia with mag of 1.5, normal BUN and creatinine at 8/0.84 normal sodium. Mild leukocytosis at 11.7, not anemic thrombocytosis with platelets 516. Respiratory bio fire is negative. TSH normal 4.5 Lyme screen, C. difficile, stool BioFire pending Diagnostic Findings chest x-ray was clear I personally reviewed the film and agree with radiologist interpretation ECG Additional Comments: I personally reviewed the EKG tracingEKG with normal sinus rhythm LVH with repolarization abnormality. no acute ischemic changes Code Status & VTE Plan VTE Prophylaxis Plan VTE Prophylaxis will be ordered: Yes PG Care Time/CCT Total # of Minutes Spent Total Time Spent with Patient: Total time spent is greater than 50% in coordination of care (as documented) at patient's floor/unit and/or counseling patient: Coding Level of Care Code 43113 INT INP/OBS CARE 375MIN Diagnoses Morbid obesity with BMI of 40.0-44.9, adult E66.01; Z68.41 Spinal stenosis of lumbar region with neurogenic claudication M48.062 Neurogenic claudication status: with neurogenic claudication Nausea vomiting and diarrhea R11.2; R19.7 Hypokalemia E87.6 (2) Lumbar spinal stenosis Neurogenic claudication status: with neurogenic claudication Qualified Code(s): M48.062 - Spinal stenosis, lumbar region with neurogenic claudication
[2024-09-01] MEDS ORDERED: ONDANSETRON INJ 2 MG/ML 2 ML VIAL IV PRN ×2 (15:58→18:30)
[2024-09-01] MEDS: POTASSIUM CHLORIDE CRTAB 20 MEQ TABCR PO STA (16:06)
--- OUTSIDE RECORDS SUMMARY | 2024-09-01 17:15 | External Medical Summary | Continuity of Care Document ---
Author Name Unknown Organization [facility] [address] [place] [id number] Care Team Providers Care Equipment Planner Name Role Phone Ian Saenz Primary Care Physician [phone] [id number] Date(s): 08/17/24 - 08/17/24 [facility] [address] [address] [phone] Encounter Diagnosis Fatigue(Discharge Diagnosis) - 08/17/24 Muscle spasm(Discharge Diagnosis) - 08/17/24 Discharge Disposition: Home or Self Care Attending Physician: GIO Ribeiro Kimberly A Encounter Type: Clinic Allergies, Adverse Reactions, Alerts Substance Criticality Severity Reaction Reaction Severity Status iodine topical Activ e sulfa drugs Swelling Active seafood Active milk products Unable to assess criticality Moderate Itch Diarrhea Active Assessment and Plan Extracted from: Title:Office Visit Note - APSO Author:Sasha Luna Date:08/17/24 STATUS: Acute, uncomplicate d illness/injury 79 year-old female presents with headache and body aches that started on 3 days ago. Ear pain began yesterday. Headache started slowly, never happened before on the back of neck and head, worse on the right side. She has tried Tylenol 1000mg every 6 hours which helps. Rates the pain as 8-9/10 and describes it as a tightness. Laying down makes headache worse. DATA: Labs reviewed. GOAL: Resolution PLAN: Swab for flu and covid due to body aches, loss of appetite, fatigue, results negative Ordered x-ray of head and neck Change to Diazepam 5mg twice daily x 7 days Continue Tylenol as needed Further recommendations discussed if symptoms not improving ER precautions if fever, chills Immunizations Given and Recorded Vaccine Date Status Refusal Reason influenza virus vaccine, inactivated 03/27/24 Give n influenza virus vaccine, inactivated 02/07/22 Give n influenza virus vaccine, inactivated 03/04/19 Give n influenza virus vaccine, inactivated 06/12/17 Give n influenza virus vaccine, inactivated 03/26/14 Give n SARS-CoV-2 mRNA-1273 (6y+ bivalent) 03/11/22 Recor ded SARS-CoV-2 (COVID-19) mRNA-1273 vaccine 03/17/21 R ecorded SARS-CoV-2 (COVID-19) mRNA-1273 vaccine 03/16/21 R ecorded SARS-CoV-2 (COVID-19) mRNA-1273 vaccine 07/07/20 R ecorded SARS-CoV-2 (COVID-19) mRNA-1273 vaccine 06/09/20 R ecorded pneumococcal 23-valent vaccine 02/22/20 Given pneumococcal 13-valent vaccine 01/18/17 Given Medications BACLOFEN 20 MG TABLET Start: 06/16/24 8:04:00 AM EST, BACLOFEN 20 MG TABLET, 1 tab, PO, Daily, Disp# 30 tab, Refills: 5, Pharmacy [id number] Start Date: 06/16/24 Status: Ordered Quantity: 30.0 Unit: tab Repeat number: 1 budesonide 3 mg oral delayed release capsule Start: 07/20/24 8:12:00 PM EDT, 1 cap, PO, qAM, Disp# 14 cap, [id number] Start Date: 07/20/24 Stop Date: 08/03/24 Status: Ordered Quantity: 14.0 Unit: cap Repeat number: 1 budesonide 3 mg oral delayed release capsule Start: 07/23/24 1:26:00 PM EDT, See Instructions, Disp# 42 cap, Refills: 0, 2 cap PO qAM 4 weeks, Note to Pharmacy: take 2 capsules daily for 2 weeks and then take 1 capsule daily for 2 weeks then stop, Pharmacy: [facility]/pharmacy #[id number] Start Date: 07/23/24 Status: Ordered Quantity: 42.0 Unit: cap Repeat number: 1 calcium-vitamin D 600 mg-500 intl units oral tablet, extended release Start: 11/04/13 10:15:00 AM EDT, 2 tab, PO, qAM Start Date: 11/04/13 Status: Ordered Repeat number: 1 diazePAM 5 mg oral tablet Start: 08/17/24 12:10:00 PM EDT, 1 tab, PO, Daily, Disp# 30 tab, Refills: 3, PRN: Insomnia, Pharmacy:[facility]/pharmacy #[id number] Start Date: 08/17/24 Stop Date: 12/15/24 Status: Ordered Quantity: 30.0 Unit: tab Repeat number: 4 diclofenac 1% topical gel Start: 03/04/23 8:39:00 AM EDT, 2 g =, topical, qid, Disp# 100 g, Refills: 2, PRN: if needed for pain ON BILATERAL KNEES, Pharmacy: [id number] Start Date: 03/04/23 Status: Ordered Quantity: 100.0 Unit: g Repeat number: 1 Fish Oil 1000 mg oral capsule Start: 02/15/14 4:19:00 PM EDT, 1 cap, PO, Daily Start Date: 02/15/14 Status: Ordered Repeat number: 1 Flonase 50 mcg/inh nasal spray Start: 08/26/20 2:18:00 PM EDT, 1 spray, intranasal, Daily, Disp# 3 each, Refills: 3, in each nostril, PRN: allergy symptoms, Pharmacy: [id number] Start Date: 08/26/20 Status: Ordered Quantity: 3.0 Unit: each Repeat number: 4 furosemide 20 mg oral tablet Start: 06/25/23 11:45:00 AM EST, 1 tab, PO, Daily, Disp# 90 tab, Refills: 3, Pharmacy: [facility] #[id number] Start Date: 06/25/23 Status: Ordered Quantity: 90.0 Unit: tab Repeat number: 1 gabapentin 300 mg oral capsule Start: 03/18/23 11:10:00 AM EST, 2 cap, PO, Daily Start Date: 03/18/23 Status: Ordered Repeat number: 1 levothyroxine 150 mcg (0.15 mg) oral tablet Start: 04/16/24 3:06:00 PM EST, 1 tab, PO, Daily, Disp# 90 tab, Refills: 4, Pharmacy: [facility] Start Date: 04/16/24 Status: Ordered Quantity: 90.0 Unit: tab Repeat number: 5 magnesium oxide 400 mg (241.3 mg elemental magnesium) oral tablet Start: 02/07/22 2:17:00 PM EDT, 1 tab, PO, Daily Start Date: 02/07/22 Status: Ordered Repeat number: 1 MVI-12 Start: 11/27/12 9:02:00 AM EDT, See Instructions, 1 po daily Start Date: 11/27/12 Status: Ordered Repeat number: 1 potassium chloride 10 mEq oral capsule, extended release Start: 11/25/23 3:52:00 PM EDT, 1 cap, PO, Daily, Disp# 90 cap, Refills: 3, Pharmacy: [id number] Start Date: 11/25/23 Status: Ordered Quantity: 90.0 Unit: cap Repeat number: 1 PriLOSEC 40 mg oral delayed release capsule Start: 06/11/24 9:23:00 AM EST, 1 cap, PO, Daily, Disp# 90 cap, Refills: 3, Pharmacy: [facility]/pharmacy #[id number] Start Date: 06/11/24 Stop Date: 06/06/25 Status: Ordered Quantity: 90.0 Unit: cap Repeat number: 4 Vitamin B12 Start: 02/07/22 10:03:00 AM EDT Start Date: 02/07/22 Status: Ordered Repeat number: 1 Vitamin C Start: 04/18/20 4:24:00 PM EST Start Date: 04/18/20 Status: Ordered Repeat number: 1 Vitamin D3 Start: 02/07/22 2:16:00 PM EDT, 4000 IU, Daily Start Date: 02/07/22 Status: Ordered Repeat number: 1 Mental Status 08/17/24 Barriers to Learning one year None evide nt Mandatory Health Literacy Documentation Yes Health Literacy Communication Barriers N ever Primary Language Tajik Problem List Condition Confirmation Course Effective Dates Status H ealth Status Informant Gait instability Confirmed Active Right Achilles tendinitis Confirmed Active Acquired lymphedema of leg Confirmed Active Adhesive capsulitis of left shoulder Confirmed Active Morbid obesity with BMI of 50.0-59.9, adult Confirmed Active Contusion of right knee Confirmed Active Disorder of adrenal gland, unspecified 1 Confirmed Active DJD (degenerative joint disease) Confirmed Active GERD without esophagitis 2 Confirmed 02/04/24 Active Hyperlipidemia, unspecified 3 Confirmed 02/04/24 Active Hypothyroidism Confirmed Active Impaired fasting glucose Confirmed Active Inflammatory polyarthritis Confirmed Active Depression, major, single episode, mild Confirmed Active Neuropathic pain Confirmed Active Left knee DJD Confirmed Active Right knee DJD Confirmed Active Bilateral leg weakness Confirmed Active Pulmonary hypertension, unspecified 4 Confirmed Active Right knee pain Confirmed 05/05/12 Active Sacroiliac joint dysfunction of right side Confirmed Active Strain of right Achilles tendon, initial encounter Confirmed Active 1See outside rad/study 12/23/19 12/04/19 CT Chest FINDINGS: Calcifications of right adrenal gland 2Added per Pick Up And Delivery Driver Review-JW-02/10/24 3Added per Pick Up And Delivery Driver Review-JW-02/10/24 4See outside rad/study 12/23/19 12/04/19 CT Chest FINDINGS: Pulmonary trunk dilated measuring 3.6cm indiameter Diagnosis Diagnosis Type Effective Dates Health Status Cl inical Service Informant Fatigue Discharge Diagnosis 08/17/24 Non-Specified Muscle spasm Discharge Diagnosis 08/17/24 Non-Specified Procedures Procedure Date Related Diagnosis Body Site Status Colonoscopy 1 04/01/24 Completed EGD - esophagogastroduodenoscopy 2 04/01/24 Completed Mammogram 3 08/21/21 Completed Mammogram 4 08/18/20 Completed MRI of lumbar spine 5 02/09/20 Com pleted EMG - Electromyography 6 01/08/20 Completed DEXA - dual energy X-ray absorptiometry 7 05/11/19 Completed Eye examination 8 04/10/18 Complet ed Tumor 9 1999 Completed Childbirth operation 10 1979 C ompleted c section 1977 Completed Oral surgery 11 1969 Completed Tonsillectomy 1950 Completed 1The rectum, sigmoid colon, descending colon, splenic flexure, transverse colon, hepatic flexure, ascending colon and cecum are normal. Biopsied. No repeat colo d/t age 2LA Grade D reflux esophagitis with no bleeding. Benign-appearing esophageal stenosis, dilated Multiple gastric polyps. One gastric polyp, resected and retrieved. Normal examined duodenum. 3ACR BI-RADS CATEGORY 1: NEGATIVE 4No mammographic evidence of malignancy. 1 year screening mammogram recommended. 51. Multilevel lumbosacral spondylosis as above. See discussion for detailed level by level analysis. 2. Degenerative disc disease as above with significant endplate edema at L2-L3. 3. No destructive bony process is identified. 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 However, there was considerable lymphedema in the legs which hindered the ability to see tracings. 7The BMD measured at Forearm Radius 33% is 0.744g/cm with a T-score of 0.4. This patient is considered normal according to WHO criteria. Fracture risk is low. With a Z-score of 2.5, this patient's BMD is well above adult normal range for this age. 8No evidence of plaquenil retinopathy. 9removed by eye 10C/S 11wisdom teeth removal Results Laboratory List Name Date FluA/B+SARS CoV2 [facility] Outpt. Most recent to oldest [Reference Range]: 1 Rapid Influenza A, POC Negative 1 (08/17/24 12:35 PM) Rapid Influenza B, POC Negative (08/17/24 12:35 PM) Rapid Influenza A Screen Ref Range Negat yolis (08/17/24 12:35 PM) Rapid Influenza B Screen Ref Range Negat yolis (08/17/24 12:35 PM) COVID-19 Coronavirus Antigen POC Negativ e 2 (08/17/24 12:35 PM) 1Result Comment: Performed at: [facility], [address] [place] [address], [address], [place] [address] 2Result Comment: Positive results indicate the presence of viral antigens, but clinical correlation with patient history and other diagnostic information is necessary to determine infection status. Positive results do not rule out bacterial infection or co-infection with other viruses. The agent detected may not bethe definite cause of disease. Negative results should be treated as presumptive, do not rule out SARS-CoV-2 infection and should not be used as the sole basis for treatment or patient management decisions, including infection control decisions. Negative results should be considered in the context of a patient’s recent exposures, history and the presence of clinical signs and symptoms consistent with COVID-19, and confirmed with a molecular assay, if necessary, for patient management. Performed at: [facility], [address] [place] [address], [address], [place] [address] Vital Signs Most recent to oldest [Reference Range]: 1 Heart Rate 90 bpm (08/17/24 11:12 AM) Respiratory Rate 17 br/min (08/17/24 11:12 AM) Blood Pressure 146/78mmHg (08/17/24 11:12 AM) Social History Social History Type Response Smoking Status Never smoked cigaret inna Sex Female Sex Representation Female (finding) [facility] Outpt Note * GIO Ribeiro Kimberly A: MODIFY GIO Ribeiro Kimberly A: MODIFY, MODIFY Event Display: [facility] Outpt Note Authored Date: [id number] This note was written by a physician assistant health educator student. Preliminary report status should be regarded as NOT reviewed by a preceptor. Finalized report status indicates that the preceptor has reviewed the note and agrees with the plan. Assessment/Plan STATUS: Acute, uncomplicated illness/injury 79 year-old female presents with headache and body aches that started on 3 days ago. Ear pain beganyesterday. Headache started slowly, never happened before on the back of neck and head, worse on the right side. She has tried Tylenol 1000mg every 6 hours which helps. Rates the pain as 8-9/10 anddescribes it as a tightness. Laying down makes headache worse. DATA: Labs reviewed. GOAL: Resolution PLAN: Swab for flu and covid due to body aches, loss of appetite, fatigue, results negative Ordered x-ray of head and neck Change to Diazepam 5mg twice daily x 7 days Continue Tylenol as needed Further recommendations discussed if symptoms not improving ER precautions if fever, chills Attestation I was physically present with the PA student and patient, having personally performed/re-performed the physical exam and medical decision making activities for the service. I verify that the history, physical exam and medical decision making as documented in the my note are accurate. Chief Complaint severe SIMON's, aches/pains on shoulders, ears hurt, no appetite, History of Present Illness 79 year-old female presents with headache and body aches that started on 3 days ago. Ear pain beganyesterday. Headache started slowly, never happened before on the back of neck and head, worse on the right side. She has tried Tylenol 1000mg every 6 hours which helps. Rates the pain as 8-9/10 anddescribes it as a tightness. Laying down makes headache worse. Hasn't slept much, 1 hour last night. She feels so tired she can hardly move. Her body aches. Loss of appetite, maybe eats a meal every other day since the headache started. No nausea, vomiting, fevers, chills, vision changes, double vision, blurry vision, aura, weakness, tingling, numbness. Denies personal or family history of headaches. No seizure history. Physical Exam Vitals & Measurements HR: 90 (Monitored) RR: 17 BP: 146/78 SpO2: 97% PHQ2 Data (Data Documented on:08/17/2024 11:10) Emotional health assessment NEGATIVE General: No acute distress, appears stated age, well nourished, does not appear toxic or cachectic HEENT: NC/AT, posterior neck tender to palpation, tight muscle knot palpated on right side Cardiac: regular rate and rhythm, S1/2, no S3/4, nor murmurs/rubs/gallops on my exam, Lungs: Clear to auscultation bilaterally, no wheezes/crackles/rales/rhonchi on auscultation, no increased WOB, not tachypneic Abdomen: soft, nondistended Extremities: no cyanosis or clubbing; no ulceration or neurologic signs, no gross deformities, no LE edema Marked spasm along the right cervical spine with limitation of motion. Neuro: AxO3, spontaneously moves extremities x4 Psych: mood euthymic, normal affect Skin: warm and pink, no rash, ecchymosis, or ulcerations on exposed skin Problem List/Past Medical History Ongoing Acquired lymphedema of leg Adhesive capsulitis of left shoulder Bilateral leg weakness Contusion of right knee Depression, major, single episode, mild Disorder of adrenal gland, unspecified DJD (degenerative joint disease) Gait instability GERD without esophagitis Hyperlipidemia, unspecified Hypothyroidism Impaired fasting glucose Inflammatory polyarthritis Left knee DJD Morbid obesity with BMI of 50.0-59.9, adult Neuropathic pain Pulmonary hypertension, unspecified Right Achilles tendinitis Right knee DJD Right knee pain Sacroiliac joint dysfunction of right side SK (seborrheic keratosis)| Status: Inactive Strain of right Achilles tendon, initial encounter Resolved Impacted cerumen Left shoulder pain Procedure/Surgical History •EGD - esophagogastroduodenoscopy| Service Date: 04/01/2024•Colonoscopy| Service Date: 04/01/2024•Mammogram| Service Date: 08/21/2021•Mammogram| Service Date: 08/18/2020•MRI of lumbar spine| Service Date: 02/09/2020•EMG - Electromyography| Service Date: 01/08/2020•DEXA - dual energy X-ray absorptiometry| Service Date: 05/11/2019•Eye examination| Service Date: 04/10/2018•Tumor| Service Date: 1999•Childbirth operation| Service Date: 1979•c section| Service Date: 1977•Oral surgery| Service Date: 1969•Tonsillectomy| Service Date: 1949 Medications ascorbic acid(Vitamin C) budesonide(budesonide 3 mg oral delayed release capsule), 3 mg= 1 cap, PO, qAM budesonide(budesonide 3 mg oral delayed release capsule), See Instructions calcium and vitamin D combination(calcium-vitamin D 600 mg-500 intl units oral tablet, extended release), 2 tab, PO, qAM cholecalciferol(Vitamin D3), 4000 IU, Daily cyanocobalamin(Vitamin B12) diazePAM(diazePAM 5 mg oral tablet), 5 mg= 1 tab, PO, Daily, PRN, 3 refills diclofenac topical(diclofenac 1% topical gel), 2 g, topical, qid, PRN fluticasone nasal(Flonase 50 mcg/inh nasal spray), 1 spray, intranasal, Daily, PRN, 3 refills furosemide(furosemide 20 mg oral tablet), 1 tab, PO, Daily gabapentin(gabapentin 300 mg oral capsule), 600 mg= 2 cap, PO, Daily levothyroxine(levothyroxine 150 mcg (0.15 mg) oral tablet), 1 tab, PO, Daily, 4 refills magnesium oxide(magnesium oxide 400 mg (241.3 mg elemental magnesium) oral tablet), 400 mg= 1 tab, PO, Daily multivitamin(MVI-12), See Instructions omega-3 polyunsaturated fatty acids(Fish Oil 1000 mg oral capsule), 1000 mg= 1 cap, PO, Daily omeprazole(PriLOSEC 40 mg oral delayed release capsule), 40 mg= 1 cap, PO, Daily, 3 refills potassium chloride(potassium chloride 10 mEq oral capsule, extended release), 1 cap, PO, Daily unlisted medication(BACLOFEN 20 MG TABLET), 1 tab, PO, Daily Allergies milk products (Moderate) Itch, Diarrhea iodine topical seafood sulfa drugs Swelling Social History Smoking Status Never smoked cigarettes 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 Cancer: Mother. Cancer of colon: Brother. Diabetes: Mother. High Blood Pressure: Mother. Stroke: Father. Thyroid disease: Mother. Health Status Family Member(s) Family Member(s) Relationship: Mother, Age: 78 Years, Cause: Cacner Relationship: Father, Age: 84 Years, Cause: CVA Immunizations Vaccine Date Status influenza virus vaccine, inactivated 03/27/2024 Given SARS-CoV-2 mRNA-1273 (6y+ bivalent) 03/11/2022 Recorded influenza virus vaccine, inactivated 02/07/2022 Given SARS-CoV-2 (COVID-19) mRNA-1273 vaccine 03/17/2021 Recorded SARS-CoV-2 (COVID-19) mRNA-1273 vaccine 03/16/2021 Recorded SARS-CoV-2 (COVID-19) mRNA-1273 vaccine 07/07/2020 Recorded SARS-CoV-2 (COVID-19) mRNA-1273 vaccine 06/09/2020 Recorded pneumococcal 23-valent vaccine 02/22/2020 Given influenza virus vaccine, inactivated 03/04/2019 Given influenza virus vaccine, inactivated 06/12/2017 Given pneumococcal 13-valent vaccine 01/18/2017 Given influenza virus vaccine, inactivated 03/26/2014 Given Recommendations Health Maintenance Pending (in the next year) OverDue Medicare Annual Wellness Visit due 08/23/23 and every 1 year Due Adult Social Determinants of Health Screening due 08/17/24 Unknown Frequency Adult Tdap/Td Vaccine due 08/17/24 Unknown Frequency Hepatitis C Screening due 08/17/24 One-time only Seasonal COVID 19 Vaccine due 08/17/24 Unknown Frequency Shingles Vaccine due 08/17/24 One-time only Due In Future Adult Influenza Vaccine not due until 11/10/24 and every 1 year Falls Plan of Care not due until 02/19/25 and every 1 year Body Mass Index not due until 06/12/25 and every day Satisfied (in the past 1 year) Satisfied Adult Influenza Vaccine on 03/27/24. Satisfied by SHAY [facility] [place] Body Mass Index on 02/04/24. Satisfied by SHAY [facility] [place] Breast Cancer Screening on 08/26/23. Satisfied by SHAY Andersen Lynnae Electronic Signature on File Electronically Reviewed/Signed by: Sasha Luna Author Signature Dt/Tm:08/17/2024 11:53 AM Student, Physician Manager Small Business Electronically Reviewed/Signed by: GIO Mensah Signature Dt/Tm: 08/17/2024 12:19 PM Department of Family Medicine [facility] Patient Care team information Care Team Personnel Name: DO Saenz Franklin J Position: Physician - Family Med Member Role: Primary Care Provider Address: [address] [place] [address] Telecom: [phone] Care Team Related Persons Name: JILLIAN DEWEY Name: TREY VIEIRA Insurance Providers Guarantor name: CHEMA VIEIRA Health Plan Information #: 1 Payer: [employer] Member Number: [id number] Policy Number: NA Group Number: [id number] Health Plan Information #: 2 Payer: [employer] Member Number: [id number] Policy Number: NA Group Number: [id number]"
[2024-09-01] MEDS ORDERED: ALUMINUM/MAGNESIUM SUSP 30 ML UDC PO PRN (18:30)
[2024-09-01] MEDS ORDERED: MAGNESIUM HYDROXIDE SUSP 30 ML UDC PO PRN (18:30)
[2024-09-01] MEDS ORDERED: BISMUTH SUBSALICYLATE SUSP PO PRN (18:30)
[2024-09-01] MEDS ORDERED: LOPERAMIDE HCL 2 MG CAP PO PRN (18:30)
[2024-09-01] MEDS ORDERED: POLYETHYLENE (MIRALAX) 17 GM PACK PO PRN (18:30)
[2024-09-01] MEDS: METOCLOPRAMIDE HCL 5 MG TABLET PO SCH (19:46)
[2024-09-01] MEDS: GABAPENTIN 100 MG CAP PO SCH (20:34)
[2024-09-01] MEDS: ACETAMINOPHEN 325 MG TAB PO PRN (20:34)
[2024-09-01] MEDS: ENOXAPARIN INJ 40 MG/0.4 ML SYR SQ SCH (20:35)
[2024-09-01 22:34] LABS: Appearance Urine Cloudy (Clear); Bacteria Urine Automated None Seen (None Seen); Bilirubin Urine Negative (Negative); Blood Urine Negative (Negative); Calcium Oxalate Crystals Urine Present (None Prsent); Color Urine Dark Yellow; Glucose Urine UA Negative (Negative); Ketones Urine Trace (Negative); Leukocyte Esterase Urine 1+ (Negative); Nitrite Urine Negative (Negative); Protein Urine Trace (Negative); Specific Gravity Urine 1.025 (1.000-1.030); Urobilinogen Urine Negative (Negative); pH Urine 5.5 (4.5-7.5)
[2024-09-02] MEDS: LEVOTHYROXINE SODIUM 150 MCG TABLET PO SCH (05:45)
[2024-09-02] MEDS: NYSTATIN POWDER 15GM BTL EXT PRN (05:47)
[2024-09-02] MEDS: PANTOprazole 40 MG TAB PO SCH (08:28)
[2024-09-02] MEDS: ADVANCED PROBIOTIC 625 MG CAPSULE PO SCH (08:28)
[2024-09-02] MEDS: POTASSIUM CHLORIDE 10 MEQ TABCR PO SCH (08:34)
[2024-09-02 09:11] LABS: BUN Creatinine Ratio 9.7 (10-20); Calcium 8.9 mg/dl (8.6-10.3); Creatinine Clr Calc Pharmacy 84.6 ml/min; Magnesium 1.7 mg/dl (1.7-2.4); Potassium 3.4 mmol/L (3.5-5.1)
[2024-09-02] MEDS: CALCIUM CARBONATE 500 MG CHEWABLE TAB PO PRN (12:38)
[2024-09-02] MEDS: DICLOFENAC SOD 1% GEL 100 GM TUBE EXT PRN (20:52)
[2024-09-02] MEDS: diphenhydrAMINE 50 MG/ML VIAL IV STA (21:13)
[2024-09-02] MEDS: PROCHLORPERAZINE 10 MG in SYRINGE 8 ML IV ONE (21:13)
[2024-09-02] MEDS: CYCLOBENZAPRINE HCL 5 MG TAB PO STA (22:06)
--- NOTE | 2024-09-02 22:51 | Hospitalist Progress Note ---
Date of Service September 02, 2024 Assessment & Plan (1) Morbid obesity with BMI of 40.0-44.9, adult: (2) Lumbar spinal stenosis: (3) Nausea vomiting and diarrhea: (4) Hypokalemia: Plan 79-year-old woman with a history of lymphocytic colitis and esophagitis who was admitted with 2 weeks of flulike symptoms, ongoing malaise/myalgias generalized weakness nausea vomiting and diarrhea. Recently treated with a course of Augmentin or amoxicillin x 10 days for sinusitis symptoms which seem to have resolved. would be unlikely for a infective gastroenteritis or flulike viral syndrome to persist this long. it is possible she has a touchy GI system and is simply having trouble with her oral intake during recovery. She does have increased risk of C. difficile diarrhea with the recent course of antibiotics and mild leukocytosis, Though no abdominal pain or fever. she is at risk for gastroparesis she does have lower extremity polyneuropathy is possible that pre- existing GI symptoms of lymphocytic colitis and or lactose intolerance are in flare. with respect to the weakness it is more LE than UE, proximal more than distal. LE strength is asymmetric and weaker on the R however this may be related to her underlying neuropathy, spinal stenosis, radiculopathy and I do not think it is acute. At baseline has to help her up to get to her walker. 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 Hypokalemia and dehydration are a factor and she was mostly in bed x 2 weeks thus deconditioned. Malaise - thyroid is well replaced, B12 checked recently also well replaced, Will put on empiric p.o. thiamine but consider course of IV, ESR was very elevated at 70 early in August and PMR is a possibility she lacks any clear symptoms of temporal arteritis I added on a repeat ESR. # Nausea vomiting and diarrhea Symptomatic treatment with IV Zofran, scheduled p.o. Reglan, Imodium/Pepto as needed, lactose-free diet Ordered stool BioFire and C. difficile, my suspicion is not high enough for empiric C. difficile treatment at this time As patient is improving slowly, will hold GI consult. She did have a distal esophageal stricture dilated in March # malaise, myalgias, weakness Replace hypokalemia, ordered another 40 mEq p.o. now in ED had already given 20. Replace hypomagnesemia with IV. Hold oral magnesium supplement which she takes at home because it can cause diarrhea. A.m. BMP, monitor telemetry until potassium is greater than 3.0 Added on ESR to labs, consider PMR also her chart makes mention of an inflammatory arthritis but I cannot find any more records of this. I see an old positive KATARINA 1: 360 previous labs B12 on adequate oral replacement, hypothyroidism on adequate oral replacement, empiric B1 oral treatment Lyme testing is pending. She is very sedentary has not been out of doors so unlikely tickborne decrease gabapentin to 100 mg at bedtime, hold baclofen PT/OT seems likely she may require rehab stay # Right sided neck pain Neck is supple with no meningismus range of motion is restrictive turning to the left however there is no pain or tenderness chin to chest and extension without any pain or tenderness. I think this is muscular spasm pain is right trapezius which is very tight appears to be in spasm suspect cognitive impairmentshe is quite a vague historian and is forgetful of details. Her denies any recent altered mental status morbid obesity with BMI of 42 chronic lymphedema currently well-controlled History of HTN, not on meds, currently normotensive DVT prophylaxisenoxaparin 40 subcu twice daily Prefers full code dispositionPT/OT consult ordered, anticipate she may need SNF rehab Admission and Anticipated Discharge Date Admission Date: September 01, 2024 Subjective 79 yo female reports feeling slightly stronger. Still with generalized malaise. Physical Exam Physical Exam: General: comfortable appearing, no distress HEENT: Normocephalic, atraumatic Lungs: Normal respiratory effort. Clear to auscultation bilaterally. No RRW Heart: Regular rate and rhythm, no murmurs. No JVD Abdomen: Soft, nontender, nondistended. Bowel sounds present. Extremities: Warm, dry, well-perfused. No extremity edema. no prominent pitting edema or lymphedema at this time skin is loose. Skin: A lot of seborrheic keratoses on her back Psych: Normal affect and behavior Results & Data Results & Data Vital Signs (Past 12 Hours) Vital Signs Temp Pulse Pulse Resp BP Pulse Ox O2 Del Method 09/02/24 19:55 36.7 C 82 20 111/75 95 Room Air 09/02/24 15:32 36.5 C 86 20 119/76 96 Room Air 09/02/24 13:06 80 09/02/24 12:53 84 04/23/25 11:23 36.5 C 84 18 114/72 96 Room Air PG Care Time/CCT Total # of Minutes Spent Total Time Spent with Patient: Total time spent is greater than 50% in coordination of care (as documented) at patient's floor/unit and/or counseling patient: Coding Level of Care Code 05311 SUB INP/OBS CARE 3/50MIN Diagnoses Morbid obesity with BMI of 40.0-44.9, adult E66.01; Z68.41 Spinal stenosis of lumbar region with neurogenic claudication M48.062 Neurogenic claudication status: with neurogenic claudication Nausea vomiting and diarrhea R11.2; R19.7 Hypokalemia E87.6 (2) Lumbar spinal stenosis Neurogenic claudication status: with neurogenic claudication Qualified Code(s): M48.062 - Spinal stenosis, lumbar region with neurogenic claudication
[2024-09-03 06:17] LABS: Hematocrit (blood only) 33.4 % (37.0-47.0); Hemoglobin 10.8 g/dl (12.0-16.0); Mean Corpuscular Hemoglobin 28.5 pg (25.0-34.0); Mean Corpuscular Hgb Conc 32.3 g/dL (32.0-36.0); Mean Corpuscular Volume 88.1 fL (80.0-100.0); Mean Platelet Volume 9.1 fL (9.4-12.4); Platelet Count 351 K/uL (130-400); RDW Coefficient of Variation 12.9 % (11.5-14.5); RDW Standard Deviation 41.6 fL (36.4-46.3); Red Blood Count 3.79 M/uL (4.20-5.40); White Blood Count 7.56 K/ul (4.8-10.8)
[2024-09-03 06:22] LABS: BUN Creatinine Ratio 11.1 (10-20); C Reactive Protein 11.02 mg/dl (0-0.5); Calcium 8.8 mg/dl (8.6-10.3); Creatinine Clr Calc Pharmacy 84.1 ml/min; Potassium 3.1 mmol/L (3.5-5.1)
--- NOTE | 2024-09-03 08:48 | Hospitalist Progress Note ---
Date of Service September 03, 2024 Assessment & Plan (1) Morbid obesity with BMI of 40.0-44.9, adult: (2) Lumbar spinal stenosis: (3) Nausea vomiting and diarrhea: (4) Hypokalemia: Plan 79-year-old woman with a history of lymphocytic colitis and esophagitis who was admitted with 2 weeks of flulike symptoms, ongoing malaise/myalgias generalized weakness nausea vomiting and diarrhea. Recently treated with a course of Augmentin or amoxicillin x 10 days for sinusitis symptoms which seem to have resolved. 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 diff pending - low suspicion #Right sided neck pain History of neck spasm Will restart home Valium and Baclofen HS morbid obesity with BMI of 42 chronic lymphedema currently well-controlled History of HTN, not on meds, currently normotensive FENGI: regular, lactose intolerant Code status: full DVT prophylaxis: Lovenox Isolation: none Disposition: med/tele; ultimately to rehab Admission and Anticipated Discharge Date Admission Date: September 02, 2024 Supervising Physician Co-Signing Physician Notes I personally examined the patient and verified all sifuentes points of history and exam, discussed case, and agree with decision making with Dr Friedman feeling better than whenever she came in. However, has diarrhea. She cannot really recall if this started after she got the flu or before, but notes that when she was treated by GI it was much better but has since recurred. Also notes feeling stiff all over. Vitals noted, in general she is awake and alert pleasant no distress. HEENT normocephalic atraumatic mucous membranes moist. Breathing unlabored no accessory muscle use good effort. Skin without rashes pallor or icterus. Neuro without focal deficits. Labs and diagnostics noted, resident physician reviewed years of outpatient records as well weakness/stiffness seems to be acute on chronicI suspect she has a chronic underlying inflammatory conditioncarries a diagnosis of inflammatory arthritis for years, does seem somewhat, but not entirely consistent with polymyalgia rheumatica. What ever her chronic connective tissue/inflammatory state is was probably flared up by having the fluand is now worse. Given that it behaves at least somewhat like polymyalgia, we discussed risks and benefits and it seemed quite reasonable to give therapeutic trial to corticosteroidsstarted today. Follow. If it is in the family of polymyalgia rheumatica, I would expect a fairly fast (a few days tops)response, and if she sees no response in a few days, at least this would be off of the differential; if she responds some but still has disproportionate hip weakness, then would maybe need to workup from a lumbar spine standpoint diarrheaknown diagnosis of lymphocytic colitis, sounds like she responded well to budesonide before. Probably would respond to systemic steroids, but if not could consider retreatment with budesonide as well. DVT prophylaxisLovenox otherwise as above Subjective Patient seen and evaluated at bedside this morning. No acute events overnight. States that she is feeling somewhat better. She received a dose of Flexeril overnight which helped her to sleep and significantly improved her neck ache. She does take baclofen at home which has not been continued during this hospitalization. She is very motivated to continue to work with PT and interested in going to rehab. Only complaint this am is feeling that her butt is raw and states that barrier cream does not seem to be helping. Had one episode of vomiting yesterday but overall her GI symptoms have improved. Review of Systems Review of Systems: reviewed, per HPI Physical Exam Physical Exam: Constitutional: well-appearing, no acute distress HEENT: NCAT, no conjunctival injection CV: extremities well-perfused, chronic lymphedema Resp: no increased work of breathing GI: nondistended MSK: no gross deformities appreciated Skin: warm, dry Neuro: alert, oriented, no focal neurologic deficit appreciated Results & Data Results & Data Vital Signs (Past 12 Hours) Vital Signs Temp Pulse Pulse Resp BP Pulse Ox O2 Del Method 09/03/24 07:45 36.4 C L 75 16 125/86 94 Room Air 09/03/24 03:06 36.5 C 80 20 93/60 L 94 Room Air 09/02/24 23:27 36.6 C 83 20 102/66 93 Room Air 09/02/24 21:57 84 Resident Activity Tracking Resident Involvement: Resident Care Provided Care Provided: Adult Hospital Medicine (2) Lumbar spinal stenosis Neurogenic claudication status: with neurogenic claudication Qualified Code(s): M48.062 - Spinal stenosis, lumbar region with neurogenic claudication
[2024-09-03] MEDS: POTASSIUM CHLORIDE CRTAB 20 MEQ TABCR PO STA (09:01)
[2024-09-03] MEDS: MAGNESIUM SULFATE / D5W 1 GM/100 ML BAG IV SCH (09:02)
[2024-09-03] MEDS: BUTT PASTE (ZINC OXIDE 16%) 171 APPLN/57 GM JAR EXT SCH (09:55)
[2024-09-03] MEDS: FLUTICASONE PROPIONATE NA SPR 16 GM BTL SCH (12:24)
[2024-09-03] MEDS ORDERED: methylPREDNISolone 125 MG/2 ML VIAL IV STA (13:53)
[2024-09-03] MEDS: methylPREDNISolone 40 MG in SYRINGE 0 ML IV ONE (15:13)
--- NOTE | 2024-09-03 15:58 | Billing Data ---
Date of Service September 03, 2024 Coding Level of Care Code 38325 SUB INP/OBS CARE
[2024-09-03 16:21] LABS: Adenovirus F 40/41 PCR Not Detected (NotDetected); Astrovirus PCR Not Detected (NotDetected); Campylobacter PCR Not Detected (NotDetected); Cryptosporidium PCR Not Detected (NotDetected); Cyclospora cayetanensis PCR Not Detected (NotDetected); Entamoeba histolytica PCR Not Detected (NotDetected); Enteroaggregative E.coli(EAEC) Not Detected (NotDetected); Enteropathogenic E.coli (EPEC) Not Detected (NotDetected); Enterotoxigenic E.coli (ETEC) Not Detected (NotDetected); Giardia lamblia PCR Not Detected (NotDetected); Norovirus GI/GII PCR Not Detected (NotDetected); Plesiomonas shigelloides PCR Not Detected (NotDetected); Rotavirus A PCR Not Detected (NotDetected); Salmonella PCR Not Detected (NotDetected); Sapovirus PCR Not Detected (NotDetected); Shiga-like Toxin E.coli (STEC) Not Detected (NotDetected); Shigella/Enteroinvasive E.coli Not Detected (NotDetected); Vibrio cholerae PCR Not Detected (NotDetected); Vibrio species PCR Not Detected (NotDetected); Yersinia enterocolitica PCR Not Detected (NotDetected)
[2024-09-03] MEDS: diazePAM 5 MG TABLET PO PRN (20:43)
[2024-09-04 06:10] LABS: Basophils # (auto) 0.01 K/uL (0.00-0.20); Basophils % (auto) 0.2 %; Hematocrit (blood only) 33.6 % (37.0-47.0); Immature Granulocytes # (auto) 0.02 K/uL (0.01-0.20); Immature Granulocytes % (auto) 0.4 %; Lymphocytes # (auto) 0.95 K/uL (1.20-3.40); Lymphocytes % (auto) 16.6 %; Mean Corpuscular Hemoglobin 28.6 pg (25.0-34.0); Mean Corpuscular Hgb Conc 32.7 g/dL (32.0-36.0); Mean Corpuscular Volume 87.3 fL (80.0-100.0); Mean Platelet Volume 9.3 fL (9.4-12.4); Monocytes # (auto) 0.24 K/uL (0.11-0.59); Monocytes % (auto) 4.2 %; Neutrophils # (auto) 4.49 K/uL (1.40-6.50); Neutrophils % (auto) 78.6 %; Platelet Count 373 K/uL (130-400); RDW Coefficient of Variation 12.6 % (11.5-14.5); RDW Standard Deviation 40.4 fL (36.4-46.3); Red Blood Count 3.85 M/uL (4.20-5.40); White Blood Count 5.71 K/ul (4.8-10.8)
[2024-09-04 06:32] LABS: BUN Creatinine Ratio 12.7 (10-20); Calcium 8.9 mg/dl (8.6-10.3); Creatinine Clr Calc Pharmacy 85.3 ml/min; Potassium 3.8 mmol/L (3.5-5.1)
--- NOTE | 2024-09-04 07:11 | Hospitalist Progress Note ---
Date of Service September 04, 2024 Assessment & Plan (1) Morbid obesity with BMI of 40.0-44.9, adult: (2) Lumbar spinal stenosis: (3) Nausea vomiting and diarrhea: (4) Hypokalemia: Plan 79-year-old woman with a history of lymphocytic colitis and esophagitis who was admitted with 2 weeks of flulike symptoms, ongoing malaise/myalgias generalized weakness nausea vomiting and diarrhea. Recently treated with a course of Augmentin or amoxicillin x 10 days for sinusitis symptoms which seem to have resolved. 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 Consider longer course if improvement is seen Monitor for improvement #Nausea vomiting and diarrhea Significantly improved since admission Continue PRN Zofran DC scheduled Reglan Lactose Free diet History of lymphocytic colitis s/p treatment with budesonide Stool biofire, C. diff negative #Right sided neck pain History of neck spasm Will restart home Valium and Baclofen HS morbid obesity with BMI of 42 chronic lymphedema currently well-controlled. Restart Lasix. Unsure exactly why patient is on Lasix. Will consider holding if worsening weakness after starting Lasix. History of HTN, not on meds, currently normotensive FENGI: regular, lactose intolerant Code status: full DVT prophylaxis: Lovenox Isolation: none Disposition: med/tele; ultimately to rehab Admission and Anticipated Discharge Date Admission Date: September 02, 2024 Supervising Physician Co-Signing Physician Notes I personally examined the patient and verified all sifuentes points of history and exam, discussed case, and agree with decision making with Dr Ontiveros working with PT when i see her - able to get out of bed, transfer to chair, etc with much less assist. good progress noted by PT, pt, . she notes feeling much better than yesterday (and now recalls feeling much better on steroids before) and notes much improved and very pleased with this progress. vitals noted nad heent nc at mmm breathing unlabored no accessory muscles good effort skin no rashes no pallor or icterus neuro no focal deficits. weakness/stiffness seems to be acute on chronicI suspect she has a chronic underlying inflammatory conditioncarries a diagnosis of inflammatory arthritis for years, does seem somewhat, but not entirely consistent with polymyalgia rheumatica. started steroids yesterday and seems to be improving a lot overnight - c/w PMR pathology. continue to treat as such. if she responds some but still has disproportionate hip weakness, then would maybe need to workup from a lumbar spine standpoint. will obviously need long/slow steroid taper to lowest effective dose diarrheaknown diagnosis of lymphocytic colitis, sounds like she responded well to budesonide before. Probably will respond to systemic steroids, but if not could consider retreatment with budesonide as well. DVT prophylaxisLovenox otherwise as above Subjective Patient seen bedside this morning. States that she feels like her weakness is getting slightly better. She did have a trial of steroids yesterday and states she is unsure if she had much improvement though she states that she has been on steroids in the past and may have helped with her weakness. She also states that she feels fluid overloaded and is wondering about her Lasix. Review of Systems Review of Systems: All systems reviewed & are unremarkable except as noted in Subjective Physical Exam Physical Exam: Constitutional: well-appearing, no acute distress HEENT: NCAT, no conjunctival injection CV: extremities well-perfused, chronic lymphedema Resp: no increased work of breathing GI: nondistended MSK: no gross deformities appreciated Skin: warm, dry Neuro: alert, oriented, no focal neurologic deficit appreciated Results & Data Results & Data Vital Signs (Past 12 Hours) Vital Signs Temp Pulse Pulse Resp BP Pulse Ox O2 Del Method 09/04/24 03:32 36.5 C 76 20 120/69 94 Room Air 09/04/24 00:02 36.3 C L 80 20 120/72 95 Room Air 09/03/24 21:47 75 09/03/24 20:08 36.6 C 82 20 109/71 95 Room Air (2) Lumbar spinal stenosis Neurogenic claudication status: with neurogenic claudication Qualified Code(s): M48.062 - Spinal stenosis, lumbar region with neurogenic claudication
[2024-09-04] MEDS ORDERED: methylPREDNISolone 125 MG/2 ML VIAL IV STA (09:21)
[2024-09-04] MEDS: methylPREDNISolone 40 MG in SYRINGE 0 ML IV STA (10:02)
[2024-09-04] MEDS: FUROSEMIDE 20 MG TAB PO SCH (10:17)
--- NOTE | 2024-09-04 15:45 | Billing Data ---
Date of Service September 04, 2024 Coding Level of Care Code 68061 SUB INP/OBS CARE
[2024-09-05 06:25] LABS: Hemoglobin 10.8 g/dl (12.0-16.0); Mean Corpuscular Hemoglobin 28.6 pg (25.0-34.0); Mean Corpuscular Hgb Conc 32.7 g/dL (32.0-36.0); Mean Corpuscular Volume 87.5 fL (80.0-100.0); Mean Platelet Volume 9.5 fL (9.4-12.4); Platelet Count 411 K/uL (130-400); RDW Coefficient of Variation 12.5 % (11.5-14.5); RDW Standard Deviation 40.2 fL (36.4-46.3); Red Blood Count 3.77 M/uL (4.20-5.40); White Blood Count 9.26 K/ul (4.8-10.8)
[2024-09-05 07:01] LABS: Calcium 8.8 mg/dl (8.6-10.3); Creatinine Clr Calc Pharmacy 87.2 ml/min; Potassium 3.6 mmol/L (3.5-5.1)
--- NOTE | 2024-09-05 07:42 | Hospitalist Progress Note ---
Date of Service September 05, 2024 Assessment & Plan (1) Morbid obesity with BMI of 40.0-44.9, adult: (2) Lumbar spinal stenosis: (3) Nausea vomiting and diarrhea: (4) Hypokalemia: Plan 79-year-old woman with a history of lymphocytic colitis and esophagitis who was admitted with 2 weeks of flulike symptoms, ongoing malaise/myalgias generalized weakness nausea vomiting and diarrhea. Recently treated with a course of Augmentin or amoxicillin x 10 days for sinusitis symptoms which seem to have resolved. #Ambulatory Dysfunction/Weakness/Myalgias #Suspected Polymyalgia Rheumatica -Acute change, likely in the setting of deconditioning following illness with influenza -PT/OT recommend rehab at discharge, unfortunately insurance was denied rehab at [facility]. -At baseline, does seem to have some degree of dysfunction (baseline weakness/myalgia). Weakness currently appears to be more central/truncal -Per [facility] chart, carries nonspecific diagnosis of "inflammatory arthritis" (nonspecific autoimmune workup at [facility] in 2017, known history of hypothyroidism and lymphocytic cholangitis). Prior significantly positive KATARINA at 1:360 -ESR and CRP significantly elevated -While not classically PMR, will treat as such - has received 40mg Solumedrol for 3 days. Anticipate longer course/taper with PO steroids -Patient reporting improvement in symptoms since steroids were starting #Nausea vomiting and diarrhea -Significantly improved since admission, no episodes on 09/04 -History of lymphocytic colitis s/p treatment with budesonide -Stool biofire, C. diff negative #Right sided neck pain -History of neck spasm -Continue home Valium and Baclofen HS morbid obesity with BMI of 42 chronic lymphedema currently well-controlled. Restart Lasix, unsure original indication for patient starting this medication History of HTN, not on meds, currently normotensive FENGI: regular, lactose intolerant Code status: full DVT prophylaxis: Lovenox Isolation: none Disposition: med/tele; ultimately to rehab Admission and Anticipated Discharge Date Admission Date: September 02, 2024 Supervising Physician Co-Signing Physician Notes I personally examined the patient and verified all sifuentes points of history and exam, discussed case, and agree with decision making with Dr Hanley still feeling better/stronger. diarrhea also improving. discussed insurance denial of rehab, and discussed SNF as viable option. vitals noted nad heent nc at mmm breathing unlabored no accessory muscles good effort skin no rashes no pallor or icterus neuro no focal deficits. weakness/stiffness seems to be acute on chronicI suspect she has a chronic underlying inflammatory conditioncarries a diagnosis of inflammatory arthritis for years, does seem somewhat, but not entirely consistent with polymyalgia rheumatica. started steroids and she's showing really dramatic improvement - c/w PMR pathology. continue to treat as such - 20mg prednisone starting tomorrow. if she responds some but still has disproportionate hip weakness, then would maybe need to workup from a lumbar spine standpoint. will obviously need long/slow steroid taper to lowest effective dose slowly over time diarrheaknown diagnosis of lymphocytic colitis, sounds like she responded well to budesonide before. seems to be responding to systemic steroids (expected) - follow DVT prophylaxisLovenox otherwise as above Subjective Patient seen and examined at bedside. No acute events reported overnight. Patient states she has been feeling better, was able to get up and work with PT yesterday which felt good. Able to eat some more for breakfast this morning and with her meals yesterday. Denies abdominal pain or nausea at present. Review of Systems Review of Systems: As per above Physical Exam Constitutional: WD/WN, vitals as above Eyes: + anicteric sclerae; no conjunctival abn ormality ENMT: Ears: no external ear abnormality Nose: no external nose abnormality Moist mucous membranes Respiratory: normal respiratory effort, lungs clear to auscultation Cardiovascular: Rate/Rhythm: regular rate and regular rhythm Bilateral lower extremity edema/lymphedema Gastrointestinal (Abdomen): Inspection/Auscultation: abdomen normal to inspection; abdomen not distended Percussion/Palpation: abdomen soft; abdomen nontender Skin: no rashes, warm and dry Psychiatric: A+Ox3, euthymic affect Results & Data Results & Data Vital Signs (Past 12 Hours) Vital Signs Temp Pulse Pulse Resp BP Pulse Ox O2 Del Method 09/05/24 07:20 71 09/05/24 04:16 36.6 C 73 18 113/63 94 Room Air 09/04/24 23:43 36.5 C 77 18 113/72 94 Room Air 09/04/24 22:21 81 09/04/24 20:35 Room Air 09/04/24 20:21 36.5 C 81 18 115/54 L 93 Room Air Resident Activity Tracking Resident Involvement: Resident Care Provided Care Provided: Adult Hospital Medicine (2) Lumbar spinal stenosis Neurogenic claudication status: with neurogenic claudication Qualified Code(s): M48.062 - Spinal stenosis, lumbar region with neurogenic claudication
[2024-09-05] MEDS ORDERED: methylPREDNISolone 125 MG/2 ML VIAL IV ONE (09:00)
[2024-09-05] MEDS: methylPREDNISolone 40 MG in SYRINGE 0 ML IV ONE (09:23)
--- NOTE | 2024-09-05 14:54 | Billing Data ---
Date of Service September 05, 2024 Coding Level of Care Code 69726 SUB INP/OBS CARE
[2024-09-05] MEDS: MELATONIN 3 MG TAB PO PRN (22:26)
[2024-09-06 06:42] LABS: Hematocrit (blood only) 33.6 % (37.0-47.0); Mean Corpuscular Hgb Conc 32.7 g/dL (32.0-36.0); Mean Corpuscular Volume 88.7 fL (80.0-100.0); Mean Platelet Volume 8.8 fL (9.4-12.4); Platelet Count 408 K/uL (130-400); RDW Coefficient of Variation 12.7 % (11.5-14.5); RDW Standard Deviation 41.5 fL (36.4-46.3); Red Blood Count 3.79 M/uL (4.20-5.40); White Blood Count 7.53 K/ul (4.8-10.8)
[2024-09-06 07:04] LABS: BUN Creatinine Ratio 25.3 (10-20); Creatinine Clr Calc Pharmacy 81.2 ml/min; Potassium 3.8 mmol/L (3.5-5.1)
--- NOTE | 2024-09-06 07:26 | Hospitalist Progress Note ---
Date of Service September 06, 2024 Assessment & Plan (1) Morbid obesity with BMI of 40.0-44.9, adult: (2) Lumbar spinal stenosis: (3) Nausea vomiting and diarrhea: (4) Hypokalemia: Plan 79-year-old woman with a history of lymphocytic colitis and esophagitis who was admitted with 2 weeks of flulike symptoms, ongoing malaise/myalgias generalized weakness nausea vomiting and diarrhea. Recently treated with a course of Augmentin or amoxicillin x 10 days for sinusitis symptoms which seem to have resolved. #Ambulatory Dysfunction/Weakness/Myalgias #Suspected Polymyalgia Rheumatica -Acute change, likely in the setting of deconditioning following illness with influenza -PT/OT recommend rehab at discharge, unfortunately insurance was denied rehab at [facility] -Plan to discuss authorization for [facility] after the weekend -At baseline, does seem to have some degree of dysfunction (baseline weakness/myalgia). Weakness currently appears to be more central/truncal -Per [facility] chart, carries nonspecific diagnosis of "inflammatory arthritis" (nonspecific autoimmune workup at [facility] in 2017, known history of hypothyroidism and lymphocytic cholangitis). Prior significantly positive KATARINA at 1:360 -ESR and CRP significantly elevated -While not classically PMR, will treat as such - has received 40mg Solumedrol for 3 days. Anticipate longer course/taper with PO steroids. Started prednisone 20mg on 09/06 -Patient reporting improvement in symptoms since steroids were initiated Encouraged patient to stay active and not "limit her world" based on her mobility #Nausea vomiting and diarrhea -Significantly improved since admission, no episodes on 09/04 or 09/05 -History of lymphocytic colitis s/p treatment with budesonide -Stool biofire, C. diff negative #Right sided neck pain -History of neck spasm -Continue home Valium and Baclofen HS morbid obesity with BMI of 42 chronic lymphedema currently well-controlled. Restart Lasix, unsure original indication for patient starting this medication History of HTN, not on meds, currently normotensive FENGI: regular, lactose intolerant Code status: full DVT prophylaxis: Lovenox Isolation: none Disposition: med/tele; ultimately to rehab Admission and Anticipated Discharge Date Admission Date: September 02, 2024 Supervising Physician Co-Signing Physician Notes I personally examined the patient and verified all sifuentes points of history and exam, discussed case, and agree with decision making with Dr Hanley still feeling better/stronger. diarrhea resolved. discussedwith insurance denial of rehab, and discussed SNF as viable option. vitals noted nad heent nc at mmm breathing unlabored no accessory muscles good effort skin no rashes no pallor or icterus neuro no focal deficits. weakness/stiffness seems to be acute on chronicI suspect she has a chronic underlying inflammatory conditioncarries a diagnosis of inflammatory arthritis for years, does seem somewhat, but not entirely consistent with polymyalgia rheumatica. started steroids and she's showing really dramatic improvement - c/w PMR pathology. continue to treat as such - 20mg prednisone starting 09/06. if she responds some but still has disproportionate hip weakness, then would maybe need to workup from a lumbar spine standpoint. will obviously need long/slow steroid taper to lowest effective dose slowly over time diarrheaknown diagnosis of lymphocytic colitis, responding to systemic steroids (expected) - follow DVT prophylaxisLovenox otherwise as above, for SNF/rehab emphasis Subjective Patient seen at bedside. First attempt to see patient, was getting washed up. Patient seated upright in recliner, feeling better today. is also at bedside. Patient expresses worry for falls in the future and being unable to participate in activities with her friends. Review of Systems Review of Systems: As per above Physical Exam Constitutional: WD/WN, vitals as above Eyes: + anicteric sclerae; no conjunctival abn ormality ENMT: Ears: no external ear abnormality Nose: no external nose abnormality Respiratory: normal respiratory effort, lungs clear to auscultation Cardiovascular: Clinically well perfused, noted chronic bilateral lower extremity edema. Skin: no rashes, warm and dry Psychiatric: A+Ox3, euthymic affect Results & Data Results & Data Vital Signs (Past 12 Hours) Vital Signs Temp Pulse Pulse Resp BP Pulse Ox O2 Del Method 09/06/24 07:13 68 09/06/24 03:36 36.3 C L 69 20 125/76 95 Room Air 09/05/24 23:22 36.4 C L 70 18 125/80 94 Room Air 09/05/24 22:09 73 09/05/24 19:54 36.4 C L 69 20 110/70 96 Room Air Resident Activity Tracking Resident Involvement: Resident Care Provided Care Provided: Adult Hospital Medicine (2) Lumbar spinal stenosis Neurogenic claudication status: with neurogenic claudication Qualified Code(s): M48.062 - Spinal stenosis, lumbar region with neurogenic claudication
[2024-09-06] MEDS: predniSONE 20 MG TAB PO SCH (08:26)
--- NOTE | 2024-09-06 16:40 | Billing Data ---
Date of Service September 06, 2024 Coding Level of Care Code 36926 SUB INP/OBS CARE
[2024-09-07] MEDS: BACLOFEN 10 MG TAB PO PRN (06:24)
--- NOTE | 2024-09-07 13:57 | Hospitalist Progress Note ---
Date of Service September 07, 2024 Assessment & Plan (1) Morbid obesity with BMI of 40.0-44.9, adult: (2) Lumbar spinal stenosis: (3) Nausea vomiting and diarrhea: (4) Hypokalemia: Plan 79-year-old woman with a history of lymphocytic colitis and esophagitis who was admitted with 2 weeks of flulike symptoms, ongoing malaise/myalgias generalized weakness nausea vomiting and diarrhea. Recently treated with a course of Augmentin or amoxicillin x 10 days for sinusitis symptoms which seem to have resolved. #Ambulatory Dysfunction/Weakness/Myalgias #highly probable Polymyalgia Rheumatica -Acute change, likely in the setting of deconditioning following illness with influenza (suspect chronic autoimmune baseline flared by flu leading to hospitalization) -PT/OT recommend rehab at discharge, unfortunately insurance was denied rehab at [facility] -for SNF, rehab emphasis once approved -At baseline, does seem to have some degree of dysfunction (baseline weakness/myalgia). Weakness currently appears to be more central/truncal -Per [facility] chart, carries nonspecific diagnosis of "inflammatory arthritis" (nonspecific autoimmune workup at [facility] in 2017, known history of hypothyroidism and lymphocytic cholangitis). Prior significantly positive KATARINA at 1:360 -ESR and CRP significantly elevated -While not classically PMR, will treat as such - and improved dramatically both in pain/stiffness and functional status - therefore would essentially treat as PMR until/unless the situation were to change in a dramatic way Encouraged patient to stay active and not "limit her world" based on her mobility -does have a predominance of hip/back pain as well with this - if the rest of symptoms improve and back/hip still are "rate limiting" then would work up specifically if needed; since steroids/time/rehab may affect a functional improvement and obviate the need for a specific w/u - holding off on this for now. #Nausea vomiting and diarrhea -History of lymphocytic colitis s/p treatment with budesonide -steroids for polymyalgia appear to be helping with this as well morbid obesity with BMI of 42 chronic lymphedema currently well-controlled. History of HTN, not on meds, currently normotensive FENGI: regular, lactose intolerant Code status: full DVT prophylaxis: Lovenox Isolation: none Disposition:stable on medical, anticipate SNF with rehab emphasis when insurance allows for her care to move forward; ultimate goal to get back home with . Admission and Anticipated Discharge Date Admission Date: September 02, 2024 Subjective feeling good overall. Just awaiting bureaucratic processes for SNF with rehab emphasis given that her insurance company denied rehab without really giving consideration to her rehab potential her medical complexity. Over the weekend, we all lamented the lack of aspects of insurance, but now that we are able to get her journey moving forward given that they are open again to at least allow for her approval for SNF, we decided it was best for her to move her story forward. present at the bedside as well. Review of Systems Review of Systems: All systems reviewed & are unremarkable except as noted in HPI & below Physical Exam Physical Exam: In general she is awake and alert pleasant no distress. HEENT normocephalic atraumatic mucous membranes moist. Breathing unlabored no accessory muscle use good effort. Skin without rashes pallor or icterus. Neuro without focal deficits Results & Data Results & Data Vital Signs (Past 12 Hours) Vital Signs Temp Pulse Resp BP Pulse Ox O2 Del Method 09/07/24 09:50 Room Air 09/07/24 07:39 97.5 F L 64 18 126/76 95 Room Air PG Care Time/CCT Total # of Minutes Spent Total Time Spent with Patient: Total time spent is greater than 50% in coordination of care (as documented) at patient's floor/unit and/or counseling patient: Coding Level of Care Code 38270 SUB INP/OBS CARE 2/35MIN Diagnoses Morbid obesity with BMI of 40.0-44.9, adult E66.01; Z68.41 Spinal stenosis of lumbar region with neurogenic claudication M48.062 Neurogenic claudication status: with neurogenic claudication Nausea vomiting and diarrhea R11.2; R19.7 Hypokalemia E87.6 (2) Lumbar spinal stenosis Neurogenic claudication status: with neurogenic claudication Qualified Code(s): M48.062 - Spinal stenosis, lumbar region with neurogenic claudication
--- NOTE | 2024-09-08 15:47 | Hospitalist Progress Note ---
Date of Service September 08, 2024 Assessment & Plan (1) Polymyalgia rheumatica: Plan: Suspected on admission. She is now on steroid therapy and feeling better. ESR has dropped from 73 down to 50. (2) Morbid obesity with BMI of 40.0-44.9, adult: Plan: Significant weight loss recommended (3) Nausea vomiting and diarrhea: Plan: Present on admission. Now resolved (4) Hypokalemia: Plan: Corrected with replacement therapy. Serial labs Plan [facility]ful discharge to [facility] tomorrow, September 09 Admission and Anticipated Discharge Date Admission Date: September 02, 2024 Subjective Alert and oriented. She is feeling better. Sed rate has dropped down to 50 on prednisone. Anticipate discharge to [facility] tomorrow, September 09 Review of Systems 2 Review of Systems: Constitutionalno fever or chills ENTno blurred vision, no double vision, no epistaxis, no sore throat Respiratoryno cough, no wheezing, no shortness of breath Cardiacno palpitations, no chest pain, no syncope Dulce nausea, vomiting, diarrhea, melena, hematochezia GUno urinary retention, no urinary incontinence, no dysuria, no hematuria Musculoskeletalno joint pain, no muscle tenderness Skinno bruising, no rashes, no pruritus Neurono isolated weakness, no paresthesia, no weakness Psychno depression, no anxiety Physical Exam 2 Physical Exam: General-alert and oriented x3, no fever, no chills HEENT-head atraumatic and normocephalic, pupils equal and reactive to light, extraocular muscles intact Neck-no lymphadenopathy or thyromegaly, trachea midline Chest-clear to auscultation. No rales, wheezing or rhonchi Cardiac-regular rate and rhythm, normal S1 and S2 Abdomen-normal bowel sounds, no hepatosplenomegaly Extremities-no cyanosis, clubbing, or edema Neuro-cranial nerves II through XII intact, motor and sensory function within normal limits, strength symmetrical, no focal deficits Psych-normal affect, normal mood Results & Data Results & Data Vital Signs (Past 12 Hours) Vital Signs Temp Pulse Resp BP Pulse Ox O2 Del Method 09/08/24 15:09 36.4 C L 77 16 103/69 96 Room Air 09/08/24 11:47 36.3 C L 80 16 106/70 96 Room Air 09/08/24 08:36 Room Air 09/08/24 07:43 36.3 C L 62 16 120/74 95 Room Air Laboratory Results 09/06/24 06:27 09/06/24 06:27 PG Care Time/CCT Total # of Minutes Spent Total Time Spent with Patient: Total time spent is greater than 50% in coordination of care (as documented) at patient's floor/unit and/or counseling patient: Coding Level of Care Code 39132 SUB INP/OBS CARE 2/35MIN Diagnoses Polymyalgia rheumatica M35.3 Morbid obesity with BMI of 40.0-44.9, adult E66.01; Z68.41 Nausea vomiting and diarrhea R11.2; R19.7 Hypokalemia E87.6
[2024-09-08] MEDS: ENOXAPARIN INJ 40 MG/0.4 ML SYR SQ SCH (20:07)
[2024-09-09 08:07] VITALS: BP 135/79; PULSE 61; RESP 20; TEMP 97.2; O2SAT 97
--- NOTE | 2024-09-09 12:00 | Discharge Summary ---
Discharge Summary Date of Service September 09, 2024 Principal Dx & Hospital Course #1 = Principal Diagnosis (1) Polymyalgia rheumatica: Suspected on admission. She is now on steroid therapy and feeling better. ESR has dropped from 73 down to 50. (2) Morbid obesity with BMI of 40.0-44.9, adult: Significant weight loss recommended (3) Nausea vomiting and diarrhea: Present on admission. Now resolved (4) Hypokalemia: Corrected with replacement therapy. Serial labs Plan Discharge to [facility] today, September 09 Admission HPI Per Admitting Provider Uyen is a 79-year-old woman with history of lymphocytic colitis and esophagitis as well as hypothyroidism and morbid obesity who developed a nonspecific flulike illness 2 weeks ago. Her had similar symptoms but it only lasted 24-48 hours for him. She is a vague historian and her a utomatically fills in a lot of details, which seems to be their baseline. She mainly complains of muscle aches/myalgias weakness and fatigue. Early on she had right neck pain as she was given Valium and Tylenol for that. Later on she had sinus congestion right facial and ear pain and she was treated by the clinic with 10 days of Augmentin. The sinus pressure resolved but other symptoms did not improve. She also has had nausea vomiting and diarrhea throughout this time. It sounds like she is able to eat a meal but 1 hour after that she will vomit, meals also provoke diarrhea which she cannot really quantify. No hematemesis or bloody stools, no melena. She is known to be lactose intolerant but the GI symptoms persist despite avoiding dairy products recently. March 2024 she was evaluated by gastroenterology Dr. Sanchez who performed EGD and colonoscopy. 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 She was treated with a tapering dose of something for 6 to 8 weeks after that I presume it may have been a steroid for lymphocytic colitis. Intestinal symptoms did improve after that. She denies abdominal pain and denies history of C. difficile. She continues to have some neck pain right greater than the left this seems to be related to the trapezius muscle on the right and is not midline/spinal. She has been having intermittent headache which is bilateral and posterior. No symptoms of jaw claudication and no visual disturbances. No cough or shortness of breath, no chest pain. Discharge Exam General-alert and oriented x3, no fever, no chills HEENT-head atraumatic and normocephalic, pupils equal and reactive to light, extraocular muscles intact Neck-no lymphadenopathy or thyromegaly, trachea midline Chest-clear to auscultation. No rales, wheezing or rhonchi Cardiac-regular rate and rhythm, normal S1 and S2 Abdomen-normal bowel sounds, no hepatosplenomegaly Extremities-no cyanosis, clubbing, or edema Neuro-cranial nerves II through XII intact, motor and sensory function within normal limits, strength symmetrical, no focal deficits Psych-normal affect, normal mood Discharge Plan Discharge Items Patient Disposition: Transfer [facility] Reason For Visit: N/V/D, AMBULATORY DYSFUNCTION Discharge Diagnosis: Suspected polymyalgia rheumatica, ambulatory dysfunction, generalized weakness, transient nausea vomiting and diarrhea Activity: Resume your previous activity Non-emergency contact: Primary Care Provider Call non-emergency contact if: your symptoms worsen Follow-up/Referrals: Ian Saenz, [Primary Care Provider] - Diet: Regular Addtl Attending Provider Instructions: Take prednisone as directed. This will eventually be weaned off by your PCP Pending Studies at Discharge: No Stand-Alone Forms: My [facility] Skilled Items Patient informed of condition?: Yes DNR: Yes Discharge Level of Care: Skilled Communicable Disease: No Discharge Prognosis: Stable Lines: None Urinary Catheter: No Medications and DC Order Prescriptions: New prednisone 20 mg Tablet 20 mg PO QAM Qty: 14 0RF metoclopramide HCl 5 mg Tablet 5 mg PO AC Qty: 30 0RF gabapentin 100 mg Capsule 100 mg PO HS Qty: 14 0RF Continued gabapentin 300 mg capsule 300 mg PO HS Qty: 30 5RF levothyroxine 150 mcg tablet 150 mcg PO QAM Qty: 30 furosemide 20 mg tablet 20 mg PO QAM diclofenac sodium 1 % gel 2 g TOPICAL QID PRN (Reason: Pain) Rx Instructions: use on bilateral knees omeprazole 40 mg capsule,delayed release(DR/EC) 40 mg PO QAM diazepam [Valium] 5 mg tablet 5 mg PO HS PRN (Reason: Insomnia) acetaminophen [Tylenol Ex Str Rapid Release] 500 mg Tablet 500 mg PO Q6H PRN (Reason: Pain) potassium chloride 10 mEq capsule, extended release 10 meq PO QAM Tums 300 mg (750 mg) Tablet,Chewable 300 mg PO QID PRN (Reason: GERD) baclofen 20 mg tablet 20 mg PO DAILY PRN (Reason: Pain) Discharge Orders: Discharge Order (Routine); Ordered 09/09/24 Ordered By: El Marin Admission Data Admit Date/Time: 09/02/24 23:18 Attending Provider: El Marin Admit Provider: Sonu Oscar Primary Care Provider: Ian Saenz Other Providers: [facility]; Griselda Reyes; [facility]; Lilibeth Maldonado at [facility] Stay Data Consultations 09/01/24 13:57 ED Decision to Admit Stat Pending Results Patient Have Any Pending Studies at Discharge: No Discharge Instructions Given to Patient (Per Discharging Provider) Take prednisone as directed. This will eventually be weaned off by your PCP Total Time Total Time Spent Total Time Spent (In Minutes): 45-minute Coding Level of Care Code 55214 INP/OBS DISCH >30 MIN Diagnoses Polymyalgia rheumatica M35.3 Morbid obesity with BMI of 40.0-44.9, adult E66.01; Z68.41 Nausea vomiting and diarrhea R11.2; R19.7 Hypokalemia E87.6
== END 2024-09-09 12:50 | DRG 546 ==
LOC: EDINP 11:03 → ED 11:03 → SUATTDRO 15:30 → 2W 18:30 → SUATTDRO 09-02 23:18 → 3W 09-08 23:35
DX: E87.6 Hypokalemia; R11.2 Nausea with vomiting, unspecified; K52.832 Lymphocytic colitis; M48.061 Spinal stenosis, lumbar region without neurogenic claudication; M54.2 Cervicalgia; M35.3 Polymyalgia rheumatica; Z88.2 Allergy status to sulfonamides; Z79.890 Hormone replacement therapy; E03.9 Hypothyroidism, unspecified; E66.01 Morbid (severe) obesity due to excess calories; R19.7 Diarrhea, unspecified; E83.42 Hypomagnesemia; Z68.41 Body mass index [BMI] 40.0-44.9, adult